=== PATIENT | female | born 1970 | race Caucasian/White ===

== ENCOUNTER 2018-11-14 11:30 | Inpatient (IN) | payer MEDICARE, OTHER ==
[~2018-11-14] VITALS: Ht 172.7 cm; Wt 144.9 kg
[~2018-11-14 11:30] MED LIST: AEROECLIPSE II1 EACH MC; ALBIPROI INH; ALBU.083IS; ALBU90OI; ALBU90OI INH; ALBU90OI61 INH; ALBUIS IH; ALBUIS INH; ALLO300; ALPR.5 PO; AMOX500 PO; ARIP10; ARIP10 PO; ARIP15; ARIP30; ASPI81CH PO; ASPI81EC; ASPI81EC PO; ATOR10; ATOR20 PO; AZIT250 PO; Antivert25 MG PO; BECL40OI; BECLNI16.8; BENZ.5; BENZ1; BENZ1 PO; BENZ100A PO; BUSP15 PO; Bactroban22 GM TOP; CALGLU500 PO; CARB100ER; CARB200; CARB200 PO; CEFP200 PO; CEPH500 PO; CETI10; CITA20; CLON.5; CLON1; CLON2; CLON2 PO; CODACE30 PO; COLC.6 PO; CRESTOR 40MG PO; CRUTCH4 USE; CYCL10 PO; Cleocin HCl150 MG PO; DICL75ER PO; DIVA500EC; DIVA500EC PO; DIVA500ER PO; DOC250 PO; DOCU100; DULO30; Divalproex Sod500 MG PO; ELET40TA PO; ERGO50000 PO; ESTR1; ESTR2; ESTR2 PO; FERR325; FEXPSEER PO; FIBE4P PO; FISH OIL PO; FISH1000 PO; FURO20 PO; Flonase 0.05% N16 GM; GABA100 PO; GABA300 PO; GABA400 PO; GLIP2.5ER; GLYB2.5 PO; GLYB5 PO; GUAI600ER PO; GUAI600T33 PO; GUAPHELA PO; HALO5; HALO5 PO; HYDACE10B PO; HYDACE25S PR; HYDACE5 PO; HYOS.125 SL; IBUP600 PO; IBUP800 PO; INDO25 PO; INDO50 PO; INDOCIN; INSULANPEN SC; INSULIN SYRING1 EAC1 MC; IPRAIS NEB; Imitrex50 MG PO; LACT10SY PO; LAMO100 PO; LAMO25 PO; LATUDA PO; LAVAP17G PO; LEVFLO500 PO; LEVOXYL; LEVSOD25; LEVSOD25 PO; LEVSOD50; LEVSOD50 PO; LEVSOD75; LISI20 PO; LISI5 PO; LITH300C PO; LITH300CA; LITH450ER; LITHIUM; LORA1; LORA1 PO; LORA10ER PO; LOVA20; Lamotrigine100 MG PO; Lisinopril2.5 MG PO; Lithium Carbon450 MG PO; MAGCIT300 PO; MELO7.5; METF500 PO; METF500C; METF500C PO; METFORMIN PO; METH10 PO; MONT10T; MONT10T PO; MONT4; MUPI2TC TOP; Micro-K10 MEQ PO; Mucinex600 MG PO; NAPR250 PO; NAPR375 PO; NAPR500 PO; NAPR550 PO; NYSTATIN1 EAC1 MC; OMEG1CAP30 PO; OMEP20ER; OMEP20ER PO; OXYACE5T PO; OXYC5 PO; Omeprazole20 M1 PO; PANT40; PANT40 PO; PIOG15; PIOG15 PO; POTCHL20ER PO; PRAV20 PO; PRED10 PO; PRED20 PO; PROACE100; PROACE100 PO; PROC10 PO; PROM25 PO; PSEU120ER PO; Prednisone20 MG PO; Prilosec Otc20 MG PO; Pseudoephedrine30 MG PO; QUET100 PO; QUET200; QUET25; QUET300; RANI150 PO; RANI150EL PO; RISP2; ROSU10TA; ROSU10TA PO; ROSU5; ROSUVASTATIN CA40 MG PO; RXCEPH500 PO; RXHYDACE PO; RXLORA1 PO; RXNAPNA550 PO; RXOXYACE PO; RXPROACE PO; Robaxin500 MG PO; SACC250C PO; SERT100; SERT50; SITA100T2 PO; SUMA25; SUMA25 PO; SUPRAX400 MG PO; Seroquel400 MG PO; Sudogest30 MG PO; TOPAMAX 50 MG; TOPI100; TOPI25; TRAACE PO; TRAZ100; TRAZ100 PO; TRAZ50; Triamcinolone A15 GM TOP; VENL25; VENL37.5; Ventolin Soln3 ML INH; Ventolin/Prove6.7 GM INH; Vibramycin100 MG PO; ZIPR20; ZIPR40; ZOLP5 PO; Zithromax250 MG PO; [UNRECOGNIZED DRUG - OTHER]; [UNRECOGNIZED DRUG - OTHER]; [UNRECOGNIZED DRUG - OTHER]; [UNRECOGNIZED DRUG - OTHER]; [UNRECOGNIZED DRUG - OTHER]; [UNRECOGNIZED DRUG - OTHER] PO
[2018-11-14 11:59] LABS: Source, Urine Catheter
[2018-11-14 12:10] LABS: Bilirubin, Urine Neg (Neg); Blood, Urine Neg (Neg); Glucose Qualitative, Urine Neg (Neg); Ketones, Urine Neg (Neg); Leukocyte Esterase, Urine Neg (Neg); Nitrite, Urine Neg (Neg); Protein, Urine Neg (Neg); Specific Gravity, Urine 1.015 (1.003-1.022); Urobilinogen, Urine NORM (Normal)
[2018-11-14 12:14] LABS: BASOPHILS ABSOLUTE AUTO 0.01 K/mm3 (0.00-0.23); BASOPHILS PERCENT AUTO 0 % (0-2); EOSINOPHILS ABSOLUTE AUTO 0.13 K/mm3 (0.00-0.68); EOSINOPHILS PERCENT AUTO 2 % (0-6); Hematocrit 42.9 % (33.0-51.0); Hemoglobin 13.7 g/dL (11.5-16.0); IMMATURE GRAN ABSOLUTE AUTO 0.03 K/mm3 (0.00-0.10); IMMATURE GRAN PERCENT AUTO 1 % (0-1); LYMPHOCYTES ABSOLUTE AUTO 3.06 K/mm3 (0.84-5.20); LYMPHOCYTES PERCENT AUTO 54 % (21-46); MONOCYTES ABSOLUTE AUTO 0.31 K/mm3 (0.16-1.47); MONOCYTES PERCENT AUTO 6 % (4-13); Mean Corpuscular HGB Conc 31.9 g/dL (31.5-36.5); Mean Corpuscular Volume 94 fL (80-100); Mean Platelet Volume 10.3 fL (9.1-12.4); NEUTROPHILS ABSOLUTE AUTO 2.08 K/mm3 (1.96-9.15); NEUTROPHILS PERCENT AUTO 37 % (41-73); Platelet Count 117 K/mm3 (150-400); RDW Coefficient Variation 14.6 % (11.7-14.2); RDW Standard Deviation 50.2 fL (35.1-46.3); Red Blood Cell Count 4.57 M/mm3 (3.80-5.20); White Blood Cell Count 5.62 K/mm3 (4.00-11.30)
[2018-11-14 12:18] LABS: Appearance, Urine Clear (Clear); Color, Urine Yellow (P-Yellow)
[2018-11-14 12:34] LABS: Alanine Aminotransfer (ALT/SGP 37 U/L (12-78); Albumin, Blood 2.9 g/dL (3.4-5.0); Albumin/Globulin Ratio 0.9 (0.8-1.8); Alk Phos 104 U/L (50-136); Anion Gap 9 mmol/L (6-16); Aspartate Aminotrans (AST/SGOT 34 U/L (12-37); Bilirubin, Total 0.2 mg/dL (0.1-1.0); Blood Urea Nitrogen 11 mg/dL (8-24); Bun/Creatinine Ratio 15.7 (12.0-20.0); CO2, Blood 25 mmol/L (21-32); Calcium, Blood 8.7 mg/dL (8.5-10.1); Chloride, Blood 105 mmol/L (98-108); Ethanol (Alcohol), Blood, Med <3 mg/dL; Globulin, Blood 3.3 g/dL (2.2-4.0); Glomerular Filtration Rate >60 (60-); Glucose, Blood 211 mg/dL (70-99); Sodium, Blood 139 mmol/L (136-145); Total Protein, Blood 6.2 g/dL (6.4-8.2)
[2018-11-14 12:36] LABS: International Normalized Ratio 0.97; Prothrombin Time Results 10.3 Sec (9.7-11.5)
[2018-11-14 12:37] LABS: U Amphetamine Screen Not Detected; U Barbituate Screen Not Detected; U Benzodiazapine Screen DETECTED; U Buprenorphine Screen Not Detected; U Cannabinoids Screen Not Detected; U Cocaine Screen Not Detected; U Methadone Screen Not Detected; U Methamphetamine Screen Not Detected; U Opiates Screen Not Detected; U Oxycodone Screen Not Detected; U Phencyclidine Screen Not Detected; U Propoxyphene Screen Not Detected
[2018-11-14 12:40] LABS: Free Thyroxine 0.94 ng/dL (0.70-1.60)
[2018-11-14 12:42] LABS: Thyroid Stimulating Hormone 3.56 uIU/mL (0.360-4.800)
[2018-11-14] MEDS ORDERED: ARIPIPRAZOLE10 M1 PO (14:22)
[2018-11-14] MEDS ORDERED: FUROSEMIDE20 MG PO (14:23)
[2018-11-14] MEDS ORDERED: DIVA500EC PO (14:23)
[2018-11-14] MEDS ORDERED: K-Dur10 MEQ PO (14:24)
[2018-11-14] MEDS ORDERED: QUETIAPINE FUM400 MG PO (14:25)
[2018-11-14] MEDS ORDERED: Imitrex100 MG PO (14:25)
[2018-11-14] MEDS ORDERED: Lisinopril2.5 MG PO (14:25)
[2018-11-14] MEDS ORDERED: ESCITALOPRAM OX10 MG PO (14:26)
[2018-11-14] MEDS ORDERED: METFORMIN HCL500 MG PO (14:26)
[2018-11-14] MEDS ORDERED: MONTELUKAST SOD10 MG PO (14:26)
[2018-11-14] MEDS ORDERED: SITA100T2 PO (14:28)
[2018-11-14 15:37] LABS: Acetaminophen, Random <2.0 ug/mL (10.0-30.0); Salicylate 5.2 mg/dL (2.8-20.0)
[2018-11-14 15:39] LABS: Valproic Acid 96.5 ug/mL (50.0-100.0)
[2018-11-14 15:49] LABS: PCO2 Arterial 67.8 mmHg (35-45); PO2 Arterial 107 mmHg (80-100)
[2018-11-14 17:26] LABS: PCO2 Arterial 56.2 mmHg (35-45); PO2 Arterial 189 mmHg (80-100); pH Blood Arterial 7.27 (7.35-7.45)
--- NOTE | 2018-11-14 17:54 | NUR ---
ADMISSION / SHIFT SUMMARY: REPORT RECIEVED FROM RONA England RN IN ED. PT ARRIVED TO UNIT AT APPROX 1615. ON ARRIVAL, PT IS SOMNOLENT. NOT WAKING TO VERBAL STIMULUS & ONLY GRIMACING TO PAINFUL STIMULUS. SHE IS SLIGHTLY HYPOTHERMIC W/ TEMP [place] READING 95-96 DEGREES FARENHEIGHT. BIPAP IS IN PLACE W/ SETTINGS: 15/10, RR 14 & FIO2 45%. PT TOLERATING THIS WELL W/ O2 SATS > 92%. MONITOR SHOWS SR W/ HR 70-80s. HYPOTENSION NOTED, 1L NS BOLUS INITIATED PER DR OBRIEN W/ SOME IMPROVEMENT NOTED. ABG IMPROVING SINCE BIPAP THERAPY INITIATED. PT ALSO MORE ALERT, OPENING EYES BRIEFLY TO PAINFUL STIMULUS. TEMP [place] PATENT/ DRAINING. ABRASION NOTED TO L FOREARM/ ELBOW. WILL CONTINUE TO MONITOR & REPORT OFF TO ONCOMING RN.
--- NOTE | 2018-11-14 19:35 | NUR ---
PT ON BIPAP. LETHARGIC. WILL OPEN HER EYE'S WHEN SHE HEARS HER NAME BUT CLOSES THEM QUICKLY. WILL HOG GRADER HANDS ON COMMAND WITH STRONG HOG GRADER BUT ARMS ARE WEAK WHEN LIFTING THEM. WILL WIGGLE TOES ON COMMAND. ONLY MOANS FOR VERBAL. SEE ASSESSMENT.
--- NOTE | 2018-11-15 00:43 | NUR ---
PT AWAKE. WANTING BREAK FROM THE BIPAP. A/O TO PERSON, PLACE, AND TIME. ASKING APPROPRIATE QUESTIONS AND ABLE TO USE THE CALL LIGHT. PT IS STILL DROWSY AND FALLS ASLEEP QUICKLY IF LEFT UNDISTURBED.
[2018-11-15] MEDS ORDERED: QUET100 PO (02:50)
[2018-11-15] MEDS ORDERED: ROSU10TA PO (02:50)
[2018-11-15 03:30] LABS: BASOPHILS ABSOLUTE AUTO 0.01 K/mm3 (0.00-0.23); BASOPHILS PERCENT AUTO 0 % (0-2); EOSINOPHILS ABSOLUTE AUTO 0.09 K/mm3 (0.00-0.68); EOSINOPHILS PERCENT AUTO 2 % (0-6); Hematocrit 41.8 % (33.0-51.0); Hemoglobin 13.3 g/dL (11.5-16.0); IMMATURE GRAN ABSOLUTE AUTO 0.02 K/mm3 (0.00-0.10); IMMATURE GRAN PERCENT AUTO 0 % (0-1); LYMPHOCYTES ABSOLUTE AUTO 2.45 K/mm3 (0.84-5.20); LYMPHOCYTES PERCENT AUTO 46 % (21-46); MONOCYTES ABSOLUTE AUTO 0.27 K/mm3 (0.16-1.47); MONOCYTES PERCENT AUTO 5 % (4-13); Mean Corpuscular HGB Conc 31.8 g/dL (31.5-36.5); Mean Corpuscular Volume 94 fL (80-100); Mean Platelet Volume 10.3 fL (9.1-12.4); NEUTROPHILS ABSOLUTE AUTO 2.45 K/mm3 (1.96-9.15); NEUTROPHILS PERCENT AUTO 46 % (41-73); Platelet Count 107 K/mm3 (150-400); RDW Coefficient Variation 14.6 % (11.7-14.2); RDW Standard Deviation 51.4 fL (35.1-46.3); Red Blood Cell Count 4.43 M/mm3 (3.80-5.20); White Blood Cell Count 5.29 K/mm3 (4.00-11.30)
[2018-11-15 03:47] LABS: Alanine Aminotransfer (ALT/SGP 34 U/L (12-78); Albumin, Blood 2.8 g/dL (3.4-5.0); Albumin/Globulin Ratio 0.9 (0.8-1.8); Alk Phos 82 U/L (50-136); Anion Gap 6 mmol/L (6-16); Aspartate Aminotrans (AST/SGOT 33 U/L (12-37); Bilirubin, Total 0.2 mg/dL (0.1-1.0); Blood Urea Nitrogen 10 mg/dL (8-24); Bun/Creatinine Ratio 14.5 (12.0-20.0); CO2, Blood 26 mmol/L (21-32); Calcium, Blood 8.1 mg/dL (8.5-10.1); Chloride, Blood 108 mmol/L (98-108); Creatinine, Blood 0.69 mg/dL (0.40-1.00); Globulin, Blood 3.2 g/dL (2.2-4.0); Glomerular Filtration Rate >60 (60-); Glucose, Blood 150 mg/dL (70-99); Potassium, Blood 4.4 mmol/L (3.5-5.5); Sodium, Blood 140 mmol/L (136-145)
[2018-11-15 04:43] LABS: PCO2 Arterial 45.1 mmHg (35-45); PO2 Arterial 75.7 mmHg (80-100); pH Blood Arterial 7.39 (7.35-7.45)
--- NOTE | 2018-11-15 06:23 | NUR ---
SUMMARY PT WORE BIPAP UNTIL A LITTLE AFTER MIDNIGHT WHEN SHE BECAME MORE RESPONSIVE. SHE IS NOW A/O TO PERSON, PLACE, AND TIME. ABLE TO GET TO BSC WITH MINIMAL ASSIST. PT STATES SHE DOES'T REALLY REMEMBER WHAT HAPPENED YESTERDAY. SHE CAN REMEMBER DROPPING A FAMILY MEMBER OFF AT [facility] BUT NOT MUCH ELSE. NO SIGN OF DISTRESS. USING CALL LIGHT APPROPRIATELY.
--- NOTE | 2018-11-15 07:15 | NUR ---
BEGINNING OF SHIFT Assumed care at 0700. Bedside report received from Kelly BERRY. Pt alert and oriented. Requests Tylenol for elbow pain. Also requests "something to eat". Pt on room air. SR per monitor. Pt states desire to go home. When this RN asks pt why she thinks her mental status was altered, she states "I fell the other night. They said I didn't hit my head but I must have". This RN educates pt that she had a head CT that did not show any abnormality. This RN inquires if pt thinks she overdosed on her medications and she states "No". Pt inquires about her blood glucose on arrival. Results discussed. Pt states she does not think her blood glucose caused her somnolence.
--- NOTE | 2018-11-15 07:50 | NUR ---
CALL PLACED TO DR LANCASTER Notified provider that pt is alert and oriented. Asked if pt is okay to eat breakfast. Provider ordered ADA diet.
--- NOTE | 2018-11-15 08:00 | NUR ---
PROVIDER IN UNIT Pt states she is having elbow pain. Asking for Tylenol. New orders given.
--- NOTE | 2018-11-15 08:44 | NUR ---
AM MEDS / POTENTIAL DISCHARGE Discussed with Dr Sousa. Provider orders lisinopril, furosemide, and potassium. Provider states that pt will likely go home this afternoon, if Dr Gomez states it is okay.
[2018-11-15] MEDS ORDERED: LAMO100 PO (10:44)
[2018-11-15] MEDS ORDERED: ALPR.5 PO (10:57)
--- NOTE | 2018-11-15 11:00 | NUR ---
DR OBRIEN AT BEDSIDE States she would like Dr Wilkerson to see pt to review medications. Otherwise okay for discharge. Pt states she takes alprazolam as needed for panic attacks. She states she does not often need this medication, however, she took it on the evening of 11/13 due to an anxiety attack. This was discussed with Dr Obrien. Pt states verbalizes understanding that this may have caused her hospitalization and she should discontinue this medication.
--- NOTE | 2018-11-15 14:37 | NUR ---
UPDATE Dr Wilkerson in to see pt. Discussed alprazolam. Provider states pt okay to discharge. No changes made to pt's home medication regimen. Update given to Dr Sousa. Plan to discharge patient. Discharge discussed with pt. Pt states she is arranging ride home.
--- NOTE | 2018-11-15 16:46 | NUR ---
DISCHARGE Pt discharged from unit at 1545. Discharge instructions provided to patient. Pt instructed to stop taking alprazolam. Pt verbalized understanding that continuing alprazolam may result in hospitalization or . Pt escorted outside by this RN, departed with family member. IV access discontinued.
== END 2018-11-15 15:45 | disposition home or self-care (01) | DRG 189 ==
LOC: ER 11:30 → ICUW 15:55
PROVIDERS: Emergency Medicine; Internal Medicine Critical Care Medicine; ADMIT Family Medicine
PROC: 5A09357 Assistance with Respiratory Ventilation, Less than 24 Consecutive Hours, Continuous Positive Airway Pressure (ICD-10-PCS; principal; 2018-11-14)
DX: J96.02 Acute respiratory failure with hypercapnia (principal); G92 Toxic encephalopathy; G47.33 Obstructive sleep apnea (adult) (pediatric); F25.0 Schizoaffective disorder, bipolar type; T43.225A Adverse effect of selective serotonin reuptake inhibitors, initial encounter; T43.595A Adverse effect of other antipsychotics and neuroleptics, initial encounter; T42.4X5A Adverse effect of benzodiazepines, initial encounter; E11.9 Type 2 diabetes mellitus without complications; E66.01 Morbid (severe) obesity due to excess calories; G43.909 Migraine, unspecified, not intractable, without status migrainosus; G44.89 Other headache syndrome; F17.210 Nicotine dependence, cigarettes, uncomplicated; Z79.4 Long term (current) use of insulin; Z79.84 Long term (current) use of oral hypoglycemic drugs; Z79.899 Other long term (current) drug therapy; Z88.1 Allergy status to other antibiotic agents; Z88.0 Allergy status to penicillin; Z88.2 Allergy status to sulfonamides; Z88.8 Allergy status to other drugs, medicaments and biological substances
CPT/HCPCS: 36415; 36600; 51702; 70450; 71045; 80053; 80164; 81003; 82803; 82947; 84439; 84443; 85025; 85610; 93005; 93010; 94660; 96361-59; 96374-59; 99285-25; A9270; C9113; G0480; J1650; J2310; J7030

== ENCOUNTER 2018-12-25 20:39 | Emergency (ER) | payer MEDICARE, OTHER ==
[~2018-12-25] VITALS: Ht 172.7 cm; Wt 141.1 kg
[~2018-12-25 20:39] MED LIST changes: +ARIPIPRAZOLE10 M1 PO; +ESCITALOPRAM OX10 MG PO; +FUROSEMIDE20 MG PO; +Imitrex100 MG PO; +K-Dur10 MEQ PO; +METFORMIN HCL500 MG PO; +MONTELUKAST SOD10 MG PO; +QUETIAPINE FUM400 MG PO
[2018-12-25] MEDS ORDERED: KETO10 PO (22:12)
== END 2018-12-25 22:38 | disposition home or self-care (01) ==
LOC: ER 20:39
DX: S93.401A Sprain of unspecified ligament of right ankle, initial encounter (principal); S20.222A Contusion of left back wall of thorax, initial encounter; M62.830 Muscle spasm of back; J45.909 Unspecified asthma, uncomplicated; E11.9 Type 2 diabetes mellitus without complications; E03.9 Hypothyroidism, unspecified; F31.9 Bipolar disorder, unspecified; F25.9 Schizoaffective disorder, unspecified; F17.200 Nicotine dependence, unspecified, uncomplicated; Z88.8 Allergy status to other drugs, medicaments and biological substances; Z88.2 Allergy status to sulfonamides; Z88.1 Allergy status to other antibiotic agents; Z88.0 Allergy status to penicillin; Z79.899 Other long term (current) drug therapy; Z79.4 Long term (current) use of insulin; W01.10XA Fall on same level from slipping, tripping and stumbling with subsequent striking against unspecified object, initial encounter
CPT/HCPCS: 73600; 96374; 99283-25; J1885

== ENCOUNTER 2019-02-16 14:53 | Emergency (ER) | payer MEDICARE, OTHER ==
[~2019-02-16] VITALS: Ht 172.7 cm; Wt 140.2 kg
[~2019-02-16 14:53] MED LIST changes: +KETO10 PO
[2019-02-16 15:13] LABS: Source, Urine Clean Catch
[2019-02-16 15:21] LABS: Bilirubin, Urine Neg (Neg); Blood, Urine Neg (Neg); Glucose Qualitative, Urine 4+ (Neg); Ketones, Urine 1+ (Neg); Leukocyte Esterase, Urine 1+ (Neg); Nitrite, Urine Neg (Neg); Protein, Urine Neg (Neg); Specific Gravity, Urine 1.005 (1.003-1.022); Urobilinogen, Urine 2+ (Normal)
[2019-02-16 15:43] LABS: BASOPHILS ABSOLUTE AUTO 0.01 K/mm3 (0.00-0.23); BASOPHILS PERCENT AUTO 0 % (0-2); EOSINOPHILS ABSOLUTE AUTO 0.08 K/mm3 (0.00-0.68); EOSINOPHILS PERCENT AUTO 1 % (0-6); Hematocrit 46.1 % (33.0-51.0); Hemoglobin 15.3 g/dL (11.5-16.0); IMMATURE GRAN ABSOLUTE AUTO 0.03 K/mm3 (0.00-0.10); IMMATURE GRAN PERCENT AUTO 1 % (0-1); LYMPHOCYTES ABSOLUTE AUTO 2.44 K/mm3 (0.84-5.20); LYMPHOCYTES PERCENT AUTO 39 % (21-46); MONOCYTES ABSOLUTE AUTO 0.33 K/mm3 (0.16-1.47); MONOCYTES PERCENT AUTO 5 % (4-13); Mean Corpuscular HGB 29.8 pg (26.0-34.0); Mean Corpuscular HGB Conc 33.2 g/dL (31.5-36.5); Mean Corpuscular Volume 90 fL (80-100); Mean Platelet Volume 10.4 fL (9.1-12.4); NEUTROPHILS ABSOLUTE AUTO 3.36 K/mm3 (1.96-9.15); NEUTROPHILS PERCENT AUTO 54 % (41-73); Platelet Count 119 K/mm3 (150-400); RDW Coefficient Variation 14.5 % (11.7-14.2); RDW Standard Deviation 47.6 fL (35.1-46.3); Red Blood Cell Count 5.14 M/mm3 (3.80-5.20); White Blood Cell Count 6.25 K/mm3 (4.00-11.30)
[2019-02-16 15:53] LABS: Appearance, Urine Clear (Clear); Color, Urine Yellow (P-Yellow)
[2019-02-16 15:58] LABS: Alanine Aminotransfer (ALT/SGP 32 U/L (12-78); Albumin, Blood 3.4 g/dL (3.4-5.0); Albumin/Globulin Ratio 0.9 (0.8-1.8); Alk Phos 108 U/L (50-136); Anion Gap 8 mmol/L (6-16); Aspartate Aminotrans (AST/SGOT 21 U/L (12-37); Bilirubin, Total 0.4 mg/dL (0.1-1.0); Blood Urea Nitrogen 14 mg/dL (8-24); Bun/Creatinine Ratio 19.9 (12.0-20.0); CO2, Blood 27 mmol/L (21-32); Calcium, Blood 9.1 mg/dL (8.5-10.1); Chloride, Blood 104 mmol/L (98-108); Creatinine, Blood 0.71 mg/dL (0.40-1.00); Globulin, Blood 3.7 g/dL (2.2-4.0); Glomerular Filtration Rate >60 (60-); Glucose, Blood 301 mg/dL (70-99); Potassium, Blood 4.4 mmol/L (3.5-5.5); Sodium, Blood 139 mmol/L (136-145); Total Protein, Blood 7.1 g/dL (6.4-8.2)
[2019-02-16 16:02] LABS: Bacteria Mod /hpf; Red Blood Cells, Urine 0-2 /hpf (0-2); Squamous Epithelial Cells Rare /hpf (Few); White Blood Cells, Urine 0-2 /hpf (0-5)
== END 2019-02-16 16:38 | disposition home or self-care (01) ==
LOC: ER 14:53
PROVIDERS: Physician Assistant
DX: E11.65 Type 2 diabetes mellitus with hyperglycemia (principal); J45.909 Unspecified asthma, uncomplicated; E03.9 Hypothyroidism, unspecified; G47.30 Sleep apnea, unspecified; F31.9 Bipolar disorder, unspecified; F20.9 Schizophrenia, unspecified; F17.210 Nicotine dependence, cigarettes, uncomplicated; Z88.0 Allergy status to penicillin; Z88.1 Allergy status to other antibiotic agents; Z88.2 Allergy status to sulfonamides; Z88.8 Allergy status to other drugs, medicaments and biological substances; Z79.899 Other long term (current) drug therapy; Z79.84 Long term (current) use of oral hypoglycemic drugs
CPT/HCPCS: 36415; 80053; 81001; 82010; 82947; 85025; 87086; 99283; J7030

== ENCOUNTER → 2019-02-25 | Outpatient (CLI) | payer MEDICARE, OTHER | END | disposition home or self-care (01) | LOC: LAB SHORT 16:50 → LAB EV 16:50 | DX: R22.9 Localized swelling, mass and lump, unspecified (principal) | CPT/HCPCS: 87070; 87075; 87205 ==

== ENCOUNTER → 2019-07-01 | Outpatient (CLI) | payer MEDICARE, OTHER | END | disposition home or self-care (01) | LOC: EDSTATUS 06:35 → LAB SHORT 12:00 → LAB EV 12:00 | DX: N61.1 Abscess of the breast and nipple (principal) | CPT/HCPCS: 87070; 87205 ==

== ENCOUNTER 2020-01-15 09:45 | Emergency (ER) | payer MEDICARE, OTHER ==
[~2020-01-15] VITALS: Ht 172.7 cm; Wt 145.2 kg
[~2020-01-15 09:45] MED LIST changes: +OLAN2.5 PO
[2020-01-15] MEDS ORDERED: GABA400 PO (10:41)
== END 2020-01-15 13:26 | disposition home or self-care (01) ==
LOC: ER 09:45
DX: F07.81 Postconcussional syndrome (principal); E11.9 Type 2 diabetes mellitus without complications; E03.9 Hypothyroidism, unspecified; F31.9 Bipolar disorder, unspecified; F20.9 Schizophrenia, unspecified; J45.909 Unspecified asthma, uncomplicated; F17.210 Nicotine dependence, cigarettes, uncomplicated; Z79.4 Long term (current) use of insulin; Z79.899 Other long term (current) drug therapy
CPT/HCPCS: 70450; 99283-25

== ENCOUNTER 2020-02-28 18:53 | Emergency (ER) | payer MEDICARE, OTHER ==
[~2020-02-28] VITALS: Ht 172.7 cm; Wt 117.9 kg
== END 2020-02-28 20:16 | disposition home or self-care (01) ==
LOC: ER 18:53
DX: S90.32XA Contusion of left foot, initial encounter (principal); M72.2 Plantar fascial fibromatosis; Z79.899 Other long term (current) drug therapy; Z79.4 Long term (current) use of insulin; W20.8XXA Other cause of strike by thrown, projected or falling object, initial encounter; Y92.512 Supermarket, store or market as the place of occurrence of the external cause
CPT/HCPCS: 73630; 99283-25; A9270

== ENCOUNTER → 2020-04-26 | Outpatient (CLI) | payer MEDICARE, OTHER ==
[~2020-04-26] MED LIST changes: +BASAGLAR K100 UNIT/1 SC; +COLCRYS0.6 M1 PO; +Flovent 220 Ora12 GM INH; +HYDPAM50 PO; +Voltaren100 GM TOP
[2020-04-26 16:10] LABS: U Amphetamine Screen Not Detected; U Barbituate Screen Not Detected; U Benzodiazapine Screen Not Detected; U Buprenorphine Screen Not Detected; U Cannabinoids Screen DETECTED; U Cocaine Screen Not Detected; U Methadone Screen Not Detected; U Methamphetamine Screen Not Detected; U Opiates Screen Not Detected; U Oxycodone Screen Not Detected; U Phencyclidine Screen Not Detected; U Propoxyphene Screen Not Detected
[2020-05-03 13:09] LABS: AMITRIPTYLINE Negative (Cutoff=100); CLOMIPRAMINE Negative (Cutoff=100); CYCLOBENZAPRINE Positive (.); CYCLOBENZAPRINE CONF 253 ng/mL (Cutoff=100); DESIPRAMINE Negative (Cutoff=100); DOXEPIN Negative (Cutoff=100); IMIPRAMINE Negative (Cutoff=100); NORDOXEPIN Negative (Cutoff=100); NORTRIPTYLINE Negative (Cutoff=100); PROTRIPTYLINE Negative (Cutoff=100); TRICYCLIC ANTIDEP Positive ng/mL (Cutoff=100); TRIMIPRAMINE Negative (Cutoff=100)
== END | disposition home or self-care (01) ==
LOC: LAB SHORT 14:49 → LAB EV 14:49
PROVIDERS: Nurse Practitioner Psychiatric/Mental Health
DX: F25.9 Schizoaffective disorder, unspecified (principal); Z79.899 Other long term (current) drug therapy
CPT/HCPCS: G0480; G0481

== ENCOUNTER 2020-05-28 00:39 | Emergency (ER) | payer MEDICARE, OTHER ==
[~2020-05-28] VITALS: Ht 172.7 cm; Wt 156.0 kg
[~2020-05-28 00:39] MED LIST changes: -BASAGLAR K100 UNIT/1 SC; -COLCRYS0.6 M1 PO; -Flovent 220 Ora12 GM INH; -HYDPAM50 PO; -Voltaren100 GM TOP
== END 2020-05-28 03:02 | disposition home or self-care (01) ==
LOC: ER 00:39
DX: R06.02 Shortness of breath (principal); E11.9 Type 2 diabetes mellitus without complications; J45.909 Unspecified asthma, uncomplicated; F17.210 Nicotine dependence, cigarettes, uncomplicated; Z88.2 Allergy status to sulfonamides; Z88.0 Allergy status to penicillin; Z88.1 Allergy status to other antibiotic agents; Z79.84 Long term (current) use of oral hypoglycemic drugs
CPT/HCPCS: 99282; J1100

== ENCOUNTER 2020-06-30 17:50 | Emergency (ER) | payer MEDICARE, OTHER ==
[~2020-06-30] VITALS: Ht 172.7 cm; Wt 145.2 kg
[2020-06-30 18:16] LABS: BASOPHILS ABSOLUTE AUTO 0.01 K/mm3 (0.00-0.23); BASOPHILS PERCENT AUTO 0 % (0-2); EOSINOPHILS ABSOLUTE AUTO 0.14 K/mm3 (0.00-0.68); EOSINOPHILS PERCENT AUTO 3 % (0-6); Hematocrit 43.1 % (33.0-51.0); Hemoglobin 14.6 g/dL (11.5-16.0); IMMATURE GRAN ABSOLUTE AUTO 0.03 K/mm3 (0.00-0.10); IMMATURE GRAN PERCENT AUTO 1 % (0-1); LYMPHOCYTES ABSOLUTE AUTO 2.01 K/mm3 (0.84-5.20); LYMPHOCYTES PERCENT AUTO 41 % (21-46); MONOCYTES ABSOLUTE AUTO 0.29 K/mm3 (0.16-1.47); MONOCYTES PERCENT AUTO 6 % (4-13); Mean Corpuscular HGB Conc 33.9 g/dL (31.5-36.5); Mean Corpuscular Volume 89 fL (80-100); Mean Platelet Volume 10.1 fL (9.1-12.4); NEUTROPHILS ABSOLUTE AUTO 2.44 K/mm3 (1.96-9.15); NEUTROPHILS PERCENT AUTO 50 % (41-73); Platelet Count 115 K/mm3 (150-400); RDW Coefficient Variation 13.1 % (11.7-14.2); RDW Standard Deviation 42.9 fL (35.1-46.3); Red Blood Cell Count 4.86 M/mm3 (3.80-5.20); White Blood Cell Count 4.92 K/mm3 (4.00-11.30)
[2020-06-30] MEDS ORDERED: BASAGLAR K100 UNIT/1 SC (18:21)
[2020-06-30] MEDS ORDERED: CYCL10 PO (18:25)
[2020-06-30] MEDS ORDERED: COLCRYS0.6 M1 PO (18:25)
[2020-06-30] MEDS ORDERED: Voltaren100 GM TOP (18:27)
[2020-06-30] MEDS ORDERED: DIVA500ER PO (18:27)
[2020-06-30] MEDS ORDERED: Flovent 220 Ora12 GM INH (18:30)
[2020-06-30] MEDS ORDERED: HYDPAM50 PO (18:32)
[2020-06-30] MEDS ORDERED: SITA100T2 PO (18:33)
[2020-06-30] MEDS ORDERED: OMEP20ER PO (18:34)
[2020-06-30 18:53] LABS: Alanine Aminotransfer (ALT/SGP 42 U/L (12-78); Albumin, Blood 3.3 g/dL (3.4-5.0); Albumin/Globulin Ratio 0.9 (0.8-1.8); Alk Phos 103 U/L (50-136); Anion Gap 3 mmol/L (6-16); Aspartate Aminotrans (AST/SGOT 40 U/L (12-37); Bilirubin, Total 0.4 mg/dL (0.1-1.0); Blood Urea Nitrogen 11 mg/dL (8-24); Bun/Creatinine Ratio 13.4 (12.0-20.0); CO2, Blood 29 mmol/L (21-32); Calcium, Blood 9.4 mg/dL (8.5-10.1); Chloride, Blood 102 mmol/L (98-108); Creatinine, Blood 0.82 mg/dL (0.40-1.00); Globulin, Blood 3.6 g/dL (2.2-4.0); Glomerular Filtration Rate >60 (60-); Glucose, Blood 261 mg/dL (70-99); Potassium, Blood 4.4 mmol/L (3.5-5.5); Sodium, Blood 134 mmol/L (136-145); Total Protein, Blood 6.9 g/dL (6.4-8.2)
[2020-06-30 20:29] LABS: Source, Urine Clean Catch
[2020-06-30 20:32] LABS: Bilirubin, Urine Neg (Neg); Blood, Urine Neg (Neg); Glucose Qualitative, Urine 4+ (Neg); Ketones, Urine 1+ (Neg); Leukocyte Esterase, Urine 1+ (Neg); Nitrite, Urine Neg (Neg); Protein, Urine Neg (Neg); Urobilinogen, Urine NORM (Normal)
[2020-06-30 20:37] LABS: Appearance, Urine Clear (Clear); Color, Urine Yellow (P-Yellow)
[2020-06-30 20:38] LABS: Bacteria Rare /hpf; Red Blood Cells, Urine Not Seen /hpf (0-2); Squamous Epithelial Cells Few /hpf (Few); Yeast/Fungi Urine Few /hpf
[2020-06-30 20:48] LABS: U Amphetamine Screen Not Detected; U Barbituate Screen Not Detected; U Benzodiazapine Screen Not Detected; U Buprenorphine Screen Not Detected; U Cannabinoids Screen DETECTED; U Cocaine Screen Not Detected; U Methadone Screen Not Detected; U Methamphetamine Screen Not Detected; U Opiates Screen Not Detected; U Oxycodone Screen Not Detected; U Phencyclidine Screen Not Detected; U Propoxyphene Screen Not Detected
== END 2020-06-30 21:22 | disposition home or self-care (01) ==
LOC: ER 17:50
PROVIDERS: Emergency Medicine
DX: G43.909 Migraine, unspecified, not intractable, without status migrainosus (principal); E11.9 Type 2 diabetes mellitus without complications; E03.9 Hypothyroidism, unspecified; F17.210 Nicotine dependence, cigarettes, uncomplicated; Z79.4 Long term (current) use of insulin; Z79.899 Other long term (current) drug therapy; Z88.2 Allergy status to sulfonamides; Z88.0 Allergy status to penicillin; Z88.1 Allergy status to other antibiotic agents; Z88.8 Allergy status to other drugs, medicaments and biological substances; R20.2 Paresthesia of skin
CPT/HCPCS: 36415; 70450; 80053; 81001; 82947; 85025; 87086; 93005; 93010; 96365; 96375; 99283; 99284-25; J1200; J1885; J2765; J3475; J7030

== ENCOUNTER → 2020-07-27 | Outpatient (CLI) | payer MEDICARE, OTHER ==
[~2020-07-27] MED LIST changes: +BASAGLAR K100 UNIT/1 SC; +COLCRYS0.6 M1 PO; +Flovent 220 Ora12 GM INH; +HYDPAM50 PO; +Voltaren100 GM TOP
== END | disposition home or self-care (01) ==
LOC: LAB SHORT 15:39 → LAB 15:39
DX: L73.9 Follicular disorder, unspecified (principal)
CPT/HCPCS: 87070; 87205

== ENCOUNTER 2020-08-04 19:39 | Emergency (ER) | payer MEDICARE, OTHER ==
[~2020-08-04] VITALS: Ht 172.7 cm; Wt 135.2 kg
== END 2020-08-05 00:19 | disposition home or self-care (01) ==
LOC: ER 19:39
DX: G43.909 Migraine, unspecified, not intractable, without status migrainosus (principal); E11.9 Type 2 diabetes mellitus without complications; E03.9 Hypothyroidism, unspecified; F17.210 Nicotine dependence, cigarettes, uncomplicated; Z79.4 Long term (current) use of insulin; Z88.2 Allergy status to sulfonamides; Z88.0 Allergy status to penicillin; Z88.1 Allergy status to other antibiotic agents; Z88.8 Allergy status to other drugs, medicaments and biological substances; Z79.899 Other long term (current) drug therapy
CPT/HCPCS: 36415; 70450; 96374; 96375; 99284-25; J1200; J1790; J1885

== ENCOUNTER → 2020-08-05 | Outpatient (CLI) | payer MEDICARE, OTHER ==
[2020-08-05 16:35] LABS: BASOPHILS ABSOLUTE AUTO 0.02 K/mm3 (0.00-0.23); BASOPHILS PERCENT AUTO 0 % (0-2); EOSINOPHILS ABSOLUTE AUTO 0.14 K/mm3 (0.00-0.68); EOSINOPHILS PERCENT AUTO 2 % (0-6); Hemoglobin 16.3 g/dL (11.5-16.0); IMMATURE GRAN ABSOLUTE AUTO 0.05 K/mm3 (0.00-0.10); IMMATURE GRAN PERCENT AUTO 1 % (0-1); LYMPHOCYTES ABSOLUTE AUTO 2.72 K/mm3 (0.84-5.20); LYMPHOCYTES PERCENT AUTO 32 % (21-46); MONOCYTES ABSOLUTE AUTO 0.52 K/mm3 (0.16-1.47); MONOCYTES PERCENT AUTO 6 % (4-13); Mean Corpuscular HGB 30.2 pg (26.0-34.0); Mean Corpuscular Volume 89 fL (80-100); Mean Platelet Volume 10.1 fL (9.1-12.4); NEUTROPHILS ABSOLUTE AUTO 5.05 K/mm3 (1.96-9.15); NEUTROPHILS PERCENT AUTO 60 % (41-73); Platelet Count 157 K/mm3 (150-400); RDW Coefficient Variation 13.6 % (11.7-14.2); RDW Standard Deviation 43.7 fL (35.1-46.3); Red Blood Cell Count 5.39 M/mm3 (3.80-5.20)
[2020-08-05 17:10] LABS: Alanine Aminotransfer (ALT/SGP 58 U/L (12-78); Albumin, Blood 3.7 g/dL (3.4-5.0); Alk Phos 102 U/L (40-126); Anion Gap 9 mmol/L (6-16); Aspartate Aminotrans (AST/SGOT 73 U/L (12-37); Bilirubin, Total 0.6 mg/dL (0.1-1.0); Blood Urea Nitrogen 17 mg/dL (8-24); Bun/Creatinine Ratio 18.1 (12.0-20.0); CO2, Blood 28 mmol/L (21-32); Calcium, Blood 9.8 mg/dL (8.5-10.1); Chloride, Blood 100 mmol/L (98-108); Creatinine, Blood 0.94 mg/dL (0.40-1.00); Globulin, Blood 3.7 g/dL (2.2-4.0); Glomerular Filtration Rate >60 (60-); Glucose, Blood 186 mg/dL (70-99); Potassium, Blood 4.8 mmol/L (3.5-5.5); Sodium, Blood 137 mmol/L (136-145); Total Protein, Blood 7.4 g/dL (6.4-8.2)
== END | disposition home or self-care (01) ==
LOC: LAB SHORT 16:27 → LAB 16:27
PROVIDERS: Physician Assistant
DX: R42 Dizziness and giddiness (principal)
CPT/HCPCS: 36415; 80053; 85025

== ENCOUNTER 2020-09-07 00:41 | Emergency (ER) | payer MEDICARE, OTHER ==
[2020-09-07 07:09] LABS: Anion Gap 5 mmol/L (6-16); Blood Urea Nitrogen 11 mg/dL (8-24); Bun/Creatinine Ratio 14.5 (12.0-20.0); CO2, Blood 30 mmol/L (21-32); Chloride, Blood 103 mmol/L (98-108); Creatinine, Blood 0.76 mg/dL (0.40-1.00); Glomerular Filtration Rate >60 (60-); Glucose, Blood 208 mg/dL (70-99); Potassium, Blood 3.7 mmol/L (3.5-5.5); Sodium, Blood 138 mmol/L (136-145)
[2020-09-07 07:10] LABS: Calcium, Blood 9.1 mg/dL (8.5-10.1)
[2020-09-07 07:17] LABS: BASOPHILS ABSOLUTE AUTO 0.01 K/mm3 (0.00-0.23); BASOPHILS PERCENT AUTO 0 % (0-2); EOSINOPHILS ABSOLUTE AUTO 0.13 K/mm3 (0.00-0.68); EOSINOPHILS PERCENT AUTO 2 % (0-6); IMMATURE GRAN ABSOLUTE AUTO 0.03 K/mm3 (0.00-0.10); IMMATURE GRAN PERCENT AUTO 1 % (0-1); LYMPHOCYTES ABSOLUTE AUTO 2.69 K/mm3 (0.84-5.20); LYMPHOCYTES PERCENT AUTO 43 % (21-46); MONOCYTES ABSOLUTE AUTO 0.45 K/mm3 (0.16-1.47); MONOCYTES PERCENT AUTO 7 % (4-13); Mean Corpuscular HGB 30.5 pg (26.0-34.0); Mean Corpuscular HGB Conc 34.1 g/dL (31.5-36.5); Mean Corpuscular Volume 89 fL (80-100); Mean Platelet Volume 10.6 fL (9.1-12.4); NEUTROPHILS ABSOLUTE AUTO 2.91 K/mm3 (1.96-9.15); NEUTROPHILS PERCENT AUTO 47 % (41-73); Platelet Count 126 K/mm3 (150-400); RDW Coefficient Variation 13.6 % (11.7-14.2); RDW Standard Deviation 44.3 fL (35.1-46.3); Red Blood Cell Count 4.59 M/mm3 (3.80-5.20); White Blood Cell Count 6.22 K/mm3 (4.00-11.30)
== END 2020-09-07 06:00 | disposition home or self-care (01) ==
LOC: ER 00:41
PROVIDERS: Emergency Medicine
DX: R10.31 Right lower quadrant pain (principal); Z88.2 Allergy status to sulfonamides; Z79.4 Long term (current) use of insulin; Z79.899 Other long term (current) drug therapy
CPT/HCPCS: 74176; 80048; 85025; 99284-25

== ENCOUNTER 2020-11-08 01:58 | Observation (INO) | payer MEDICARE, OTHER ==
[~2020-11-08] VITALS: Ht 172.7 cm; Wt 142.0 kg
[2020-11-08 02:57] LABS: BASOPHILS ABSOLUTE AUTO 0.02 K/mm3 (0.00-0.23); BASOPHILS PERCENT AUTO 0 % (0-2); EOSINOPHILS ABSOLUTE AUTO 0.38 K/mm3 (0.00-0.68); EOSINOPHILS PERCENT AUTO 6 % (0-6); Hemoglobin 13.7 g/dL (11.5-16.0); IMMATURE GRAN ABSOLUTE AUTO 0.07 K/mm3 (0.00-0.10); IMMATURE GRAN PERCENT AUTO 1 % (0-1); LYMPHOCYTES ABSOLUTE AUTO 2.76 K/mm3 (0.84-5.20); LYMPHOCYTES PERCENT AUTO 43 % (21-46); MONOCYTES ABSOLUTE AUTO 0.37 K/mm3 (0.16-1.47); MONOCYTES PERCENT AUTO 6 % (4-13); Mean Corpuscular HGB 30.4 pg (26.0-34.0); Mean Corpuscular HGB Conc 34.3 g/dL (31.5-36.5); Mean Corpuscular Volume 89 fL (80-100); Mean Platelet Volume 10.4 fL (9.1-12.4); NEUTROPHILS ABSOLUTE AUTO 2.76 K/mm3 (1.96-9.15); NEUTROPHILS PERCENT AUTO 43 % (41-73); Platelet Count 127 K/mm3 (150-400); RDW Coefficient Variation 12.7 % (11.7-14.2); RDW Standard Deviation 41.4 fL (35.1-46.3); White Blood Cell Count 6.36 K/mm3 (4.00-11.30)
[2020-11-08 03:14] LABS: Alanine Aminotransfer (ALT/SGP 37 U/L (12-78); Albumin, Blood 3.2 g/dL (3.4-5.0); Albumin/Globulin Ratio 0.8 (0.8-1.8); Alk Phos 126 U/L (50-136); Anion Gap 7 mmol/L (6-16); Aspartate Aminotrans (AST/SGOT 33 U/L (12-37); Bilirubin, Total 0.4 mg/dL (0.1-1.0); Blood Urea Nitrogen 10 mg/dL (8-24); Bun/Creatinine Ratio 12.5 (12.0-20.0); CO2, Blood 26 mmol/L (21-32); Calcium, Blood 9.5 mg/dL (8.5-10.1); Chloride, Blood 104 mmol/L (98-108); Ethanol (Alcohol), Blood, Med <3 mg/dL; Globulin, Blood 3.9 g/dL (2.2-4.0); Glomerular Filtration Rate >60 (60-); Glucose, Blood 334 mg/dL (70-99); Potassium, Blood 4.2 mmol/L (3.5-5.5); Sodium, Blood 137 mmol/L (136-145); Total Protein, Blood 7.1 g/dL (6.4-8.2)
[2020-11-08 03:16] LABS: Acetaminophen, Random <2.0 ug/mL (10.0-30.0)
[2020-11-08] MEDS ORDERED: ABILIFY MYCITE10 M2 PO (03:41)
[2020-11-08] MEDS ORDERED: TOPI25C PO (03:43)
[2020-11-08] MEDS ORDERED: NOVOLOG FL100 UNIT/3 SC (03:51)
[2020-11-08 04:16] LABS: Valproic Acid 56.8 ug/mL (50.0-100.0)
[2020-11-08 04:28] LABS: SARS-Cov-2 (COVID-19) PCR, MMC NEGATIVE (NEGATIVE)
[2020-11-08 05:37] LABS: Source, Urine Voided
[2020-11-08 05:42] LABS: Appearance, Urine Clear (Clear); Bilirubin, Urine Neg (Neg); Blood, Urine Neg (Neg); Color, Urine Yellow (P-Yellow); Glucose Qualitative, Urine 4+ (Neg); Ketones, Urine Neg (Neg); Leukocyte Esterase, Urine Neg (Neg); Nitrite, Urine Neg (Neg); Protein, Urine Neg (Neg); Specific Gravity, Urine 1.025 (1.003-1.022); Urobilinogen, Urine NORM (Normal)
[2020-11-08 05:55] LABS: U Amphetamine Screen Not Detected; U Barbituate Screen Not Detected; U Benzodiazapine Screen Not Detected; U Buprenorphine Screen Not Detected; U Cannabinoids Screen Not Detected; U Cocaine Screen Not Detected; U Methadone Screen Not Detected; U Methamphetamine Screen Not Detected; U Opiates Screen Not Detected; U Phencyclidine Screen Not Detected
[2020-11-08 05:56] LABS: U Oxycodone Screen Not Detected; U Propoxyphene Screen Not Detected
== END 2020-11-08 12:13 | disposition home or self-care (01) ==
LOC: ER 01:58 → EOR 01:59
PROVIDERS: ADMIT Emergency Medicine
DX: R45.851 Suicidal ideations (principal); E11.9 Type 2 diabetes mellitus without complications; E03.9 Hypothyroidism, unspecified; J45.909 Unspecified asthma, uncomplicated; F12.90 Cannabis use, unspecified, uncomplicated; F17.210 Nicotine dependence, cigarettes, uncomplicated; Z88.2 Allergy status to sulfonamides; Z88.0 Allergy status to penicillin; Z88.1 Allergy status to other antibiotic agents; Z79.4 Long term (current) use of insulin; Z79.899 Other long term (current) drug therapy; Z20.822 Contact with and (suspected) exposure to COVID-19
CPT/HCPCS: 36415; 80053; 80164; 81003; 81025; 82947; 85025; 99285; A9270; G0378; G0480; U0004

== ENCOUNTER 2021-05-20 19:37 | Emergency (ER) | payer MEDICARE, OTHER ==
[~2021-05-20] VITALS: Ht 172.7 cm; Wt 139.7 kg
[~2021-05-20 19:37] MED LIST changes: +ABILIFY MYCITE10 M2 PO; +FLONASE ALLERG9.9 ML; -Flovent 220 Ora12 GM INH; +NOVOLOG FL100 UNIT/3 SC; +TOPI25 PO
[2021-05-20 21:15] LABS: Influenza A, PCR NEGATIVE (NEGATIVE); Influenza B, PCR NEGATIVE (NEGATIVE); Resp Syncytial Virus, PCR NEGATIVE (NEGATIVE); SARS-Cov-2 (COVID-19) PCR, MMC NEGATIVE (NEGATIVE)
[2021-05-20] MEDS ORDERED: Prednisone50 MG PO (22:05)
[2021-08-28] MEDS ORDERED: PRED20 PO (15:18)
[2021-10-31] MEDS ORDERED: TRAM50 PO (13:35)
== END 2021-05-20 22:35 | disposition home or self-care (01) ==
LOC: ER 19:37
PROVIDERS: Student in an Organized Health Care Education/Training Program
DX: J45.901 Unspecified asthma with (acute) exacerbation (principal); Z20.822 Contact with and (suspected) exposure to COVID-19; E11.9 Type 2 diabetes mellitus without complications; E03.9 Hypothyroidism, unspecified; F17.210 Nicotine dependence, cigarettes, uncomplicated; Z88.0 Allergy status to penicillin; Z88.2 Allergy status to sulfonamides; Z88.1 Allergy status to other antibiotic agents; Z88.8 Allergy status to other drugs, medicaments and biological substances; Z79.899 Other long term (current) drug therapy; Z79.84 Long term (current) use of oral hypoglycemic drugs; Z79.4 Long term (current) use of insulin
CPT/HCPCS: 0241U; 71046; 94640; 94664; 99285-25; J7512

== ENCOUNTER 2021-07-02 01:57 | Emergency (ER) | payer MEDICARE, OTHER ==
[~2021-07-02] VITALS: Ht 172.7 cm; Wt 140.2 kg
[~2021-07-02 01:57] MED LIST changes: -FLONASE ALLERG9.9 ML; +Flovent 220 Ora12 GM INH; +Prednisone50 MG PO; -TOPI25 PO; +TOPI25C PO
== END 2021-07-02 06:40 | disposition home or self-care (01) ==
LOC: ER 01:57
DX: S70.02XA Contusion of left hip, initial encounter (principal); W19.XXXA Unspecified fall, initial encounter; E11.9 Type 2 diabetes mellitus without complications; F17.210 Nicotine dependence, cigarettes, uncomplicated
CPT/HCPCS: 73502

== ENCOUNTER 2021-07-30 10:26 | Inpatient (IN) | payer MEDICARE, OTHER ==
[~2021-07-30] VITALS: Ht 172.7 cm; Wt 135.5 kg
[~2021-07-30 10:26] MED LIST changes: +FLONASE ALLERG9.9 ML; -Flovent 220 Ora12 GM INH
[2021-07-30 11:36] LABS: Alanine Aminotransfer (ALT/SGP 60 U/L (12-78); Albumin, Blood 3.2 g/dL (3.4-5.0); Albumin/Globulin Ratio 0.8 (0.8-1.8); Alk Phos 130 U/L (50-136); Anion Gap 14 mmol/L (6-16); Aspartate Aminotrans (AST/SGOT 52 U/L (12-37); Bilirubin, Total 0.7 mg/dL (0.1-1.0); Blood Urea Nitrogen 8 mg/dL (8-24); Bun/Creatinine Ratio 11.4 (12.0-20.0); CO2, Blood 25 mmol/L (21-32); Calcium, Blood 9.3 mg/dL (8.5-10.1); Chloride, Blood 97 mmol/L (98-108); Ethanol (Alcohol), Blood, Med <3 mg/dL; Globulin, Blood 3.9 g/dL (2.2-4.0); Glomerular Filtration Rate 103 (60-); Glucose, Blood 357 mg/dL (70-99); Potassium, Blood 3.9 mmol/L (3.5-5.5); Sodium, Blood 136 mmol/L (136-145); Total Protein, Blood 7.1 g/dL (6.4-8.2)
[2021-07-30 11:49] LABS: BASOPHILS ABSOLUTE AUTO 0.01 K/mm3 (0.00-0.23); BASOPHILS PERCENT AUTO 0 % (0-2); EOSINOPHILS ABSOLUTE AUTO 0.08 K/mm3 (0.00-0.68); EOSINOPHILS PERCENT AUTO 2 % (0-6); Hemoglobin 14.9 g/dL (11.5-16.0); IMMATURE GRAN ABSOLUTE AUTO 0.01 K/mm3 (0.00-0.10); IMMATURE GRAN PERCENT AUTO 0 % (0-1); LYMPHOCYTES ABSOLUTE AUTO 1.19 K/mm3 (0.84-5.20); LYMPHOCYTES PERCENT AUTO 30 % (21-46); MONOCYTES ABSOLUTE AUTO 0.16 K/mm3 (0.16-1.47); MONOCYTES PERCENT AUTO 4 % (4-13); Mean Corpuscular HGB 29.9 pg (26.0-34.0); Mean Corpuscular HGB Conc 33.1 g/dL (31.5-36.5); Mean Corpuscular Volume 90 fL (80-100); Mean Platelet Volume 10.8 fL (9.1-12.4); NEUTROPHILS ABSOLUTE AUTO 2.48 K/mm3 (1.96-9.15); NEUTROPHILS PERCENT AUTO 63 % (41-73); Platelet Count 70 K/mm3 (150-400); RDW Coefficient Variation 12.8 % (11.7-14.2); RDW Standard Deviation 41.7 fL (35.1-46.3); Red Blood Cell Count 4.99 M/mm3 (3.80-5.20); White Blood Cell Count 3.93 K/mm3 (4.00-11.30)
[2021-07-30 11:50] LABS: U Amphetamine Screen Not Detected; U Barbituate Screen Not Detected; U Benzodiazapine Screen Not Detected; U Buprenorphine Screen Not Detected; U Cannabinoids Screen DETECTED; U Cocaine Screen Not Detected; U Methadone Screen Not Detected; U Methamphetamine Screen Not Detected; U Opiates Screen Not Detected; U Oxycodone Screen Not Detected; U Phencyclidine Screen Not Detected; U Propoxyphene Screen Not Detected
[2021-07-30 12:45] LABS: Influenza A, PCR NEGATIVE (NEGATIVE); Influenza B, PCR NEGATIVE (NEGATIVE); Resp Syncytial Virus, PCR NEGATIVE (NEGATIVE); SARS-Cov-2 (COVID-19) PCR, MMC NEGATIVE (NEGATIVE)
[2021-07-30 12:58] LABS: Base Excess Venous -0.4 mmol/L; Bicarbonate Venous 23.2 mmol/L (24.0-30.0); PCO2 Venous 45.5 mmHg (38-42); PO2 Venous 42.6 mmHg (38-42); pH Blood Venous 7.35 (7.34-7.37)
--- NOTE | 2021-07-30 18:30 | NUR ---
END OF SHIFT: PLEASE SEE SHIFT ASSESSMENT, PATIENT HAS NO CHANGES FROM SUMMARY.
[2021-07-31 05:09] LABS: Hematocrit 35.5 % (33.0-51.0); Hemoglobin 11.9 g/dL (11.5-16.0); Mean Corpuscular HGB 29.9 pg (26.0-34.0); Mean Corpuscular HGB Conc 33.5 g/dL (31.5-36.5); Mean Corpuscular Volume 89 fL (80-100); Mean Platelet Volume 11.1 fL (9.1-12.4); Platelet Count 86 K/mm3 (150-400); RDW Coefficient Variation 12.9 % (11.7-14.2); RDW Standard Deviation 42.2 fL (35.1-46.3); Red Blood Cell Count 3.98 M/mm3 (3.80-5.20); White Blood Cell Count 9.18 K/mm3 (4.00-11.30)
[2021-07-31 05:34] LABS: BAND PERCENT MAN 18 % (0-8); BASOPHILS PERCENT MAN 0 % (0-2); EOSINOPHILS PERCENT MAN 0 % (0-6); LYMPHOCYTES ABSOLUTE MAN 1.46 K/mm3 (0.84-5.20); LYMPHOCYTES PERCENT MAN 16 % (21-46); METAMYELOCYTE ABSOLUTE MAN 0.09 K/mm3 (0.00-0.00); METAMYELOCYTE PERCENT MAN 1 % (0-0); MONOCYTES ABSOLUTE MAN 0.36 K/mm3 (0.16-1.47); MONOCYTES PERCENT MAN 4 % (4-13); NEUTROPHILS ABSOLUTE MAN 7.25 K/mm3 (1.96-9.15); SEG NEUTROPHILS PERCENT MAN 61 % (41-73); TOTAL CELLS COUNTED 100
[2021-07-31 05:50] LABS: Albumin, Blood 2.6 g/dL (3.4-5.0); Albumin/Globulin Ratio 0.7 (0.8-1.8); Bilirubin, Total 0.8 mg/dL (0.1-1.0); Bun/Creatinine Ratio 23.5 (12.0-20.0); Calcium, Blood 8.6 mg/dL (8.5-10.1); Creatinine, Blood 0.72 mg/dL (0.40-1.00); Globulin, Blood 3.5 g/dL (2.2-4.0); Magnesium, Blood 1.7 mg/dL (1.6-2.4); Potassium, Blood 4.1 mmol/L (3.5-5.5); Total Protein, Blood 6.1 g/dL (6.4-8.2)
--- NOTE | 2021-07-31 06:15 | NUR ---
SHIFT SUMMARY ASSUMED CARE OF PT AROUND 1900. PT IS A/OX4 BUT VERY LETHARGIC. PT KNEW WHAT KINDS OF MEDICATIONS SHE NEEDED BUT COULD NOT SAY THE EXACT AMOUNT AND WOULD FALL ASLEEP SOON AFTER ENDING A CONVERSATION. HEART SOUNDS REGULAR. LUNG SOUNDS ARE VERY COURSE. PT HAS JESSICA COUGHING UP THICK BROWN SPUTUM. PT WORE CPAP MOST OF THE NIGHT. PT REMAINED ON 2L WHILE AWAKE, PT WAS RA UNTIL SHE FELL ASLEEP, WHEN SHE WOULD HANG AROUND 90%. PT ABD IS DISTENDED. PT STATES IT IS MORE BLOATED THAN NORMAL BUT SHE ALSO HAS A HERNIA. PT [place] DRAINING CLEAR YELLOW URINE. PT WAS A 1P SBA TO BSC. NO ACUTE EVENTS DURING THE NIGHT.
[2021-07-31 15:25] LABS: Vancomycin, Trough 23.2 ug/mL (5.0-10.0)
--- NOTE | 2021-07-31 16:29 | NUR ---
END OF SHIFHT: LEYLA JENKINS BEEN REPOSITIONED Q2, HAS BEEN AFEBRILE BUT INCREASED TO 100.1 DURING EVENING VITALS WILL CALL PROVIDER FOR PRN TYLENOL. SPO2 >93% ON RA, 2L VIA NC FOR COMFORT. PATIENT DENIES CHEST PAIN OR SOB, INCREASING COUGH WILL PLACE CALL TO PROVIDER FOR RECOMENDATIONS. GUS JENKINS BEEN MORE ALERT AND LESS SLEEPY THROUGH THE SHIFT, MED REC FINISHED BY ELECTRICAL MAINTENANCE TECHNICIAN AND HOME MED LIST COMBINATION. PATIENT POOR HISTORIAN. PROVIDER WATCHING CASE CLOSELY, NO WORRIES FOR THE PATIENT FROM THIS UNDERGROUND ROOF BOLTER AT THIS TIME WILL CONTINUE TO MONITOR UNTIL SHIFT CHANGE.
--- NOTE | 2021-08-01 01:21 | NUR ---
CARE ASSUMPTION: RECEIVED REPORT FROM NALINI HUTSON RN. PATIENT IN CHAIR RECEIVING BREATHING TREATMENT FROM RT. PATIENT APPEARS TO FALL ASLEEP WHEN BEING SPOKEN TO. A&O X4 WHEN AWAKE, BUT VERY DROWSY. VS WNL ON 2L NC, LUNGS WHEEZY T/O. PATIENT AMBULATED TO BED. MEDICATED PER EMAR. BED LOW WITH CALL LIGHT IN REACH. FLUIDS RUNNING PER EMAR.
[2021-08-01 04:47] LABS: BASOPHILS ABSOLUTE AUTO 0.04 K/mm3 (0.00-0.23); BASOPHILS PERCENT AUTO 0 % (0-2); EOSINOPHILS ABSOLUTE AUTO 0.04 K/mm3 (0.00-0.68); EOSINOPHILS PERCENT AUTO 0 % (0-6); Hematocrit 36.2 % (33.0-51.0); Hemoglobin 11.9 g/dL (11.5-16.0); IMMATURE GRAN ABSOLUTE AUTO 0.22 K/mm3 (0.00-0.10); IMMATURE GRAN PERCENT AUTO 2 % (0-1); LYMPHOCYTES ABSOLUTE AUTO 1.92 K/mm3 (0.84-5.20); LYMPHOCYTES PERCENT AUTO 19 % (21-46); MONOCYTES ABSOLUTE AUTO 0.39 K/mm3 (0.16-1.47); MONOCYTES PERCENT AUTO 4 % (4-13); Mean Corpuscular HGB 30.1 pg (26.0-34.0); Mean Corpuscular HGB Conc 32.9 g/dL (31.5-36.5); Mean Corpuscular Volume 91 fL (80-100); Mean Platelet Volume 10.7 fL (9.1-12.4); NEUTROPHILS ABSOLUTE AUTO 7.38 K/mm3 (1.96-9.15); NEUTROPHILS PERCENT AUTO 74 % (41-73); Platelet Count 102 K/mm3 (150-400); RDW Coefficient Variation 13.1 % (11.7-14.2); RDW Standard Deviation 43.8 fL (35.1-46.3); Red Blood Cell Count 3.96 M/mm3 (3.80-5.20); White Blood Cell Count 9.99 K/mm3 (4.00-11.30)
--- NOTE | 2021-08-01 06:38 | NUR ---
SHIFT SUMMARY: PATIENT LETHARGIC AND DIFFICULT TO AROUSE T/O SHIFT. MEDICATED PER EMAR AND CBGS TRENDING DOWN. PATIENT SLEPT WITH CPAP IN PLACE MOST OF THE NIGHT, BREATHING SHALLOW AND RAPID AT TIMES, WITH HACKING COUGH. AT 0400 PATIENT COMPLAINED OF IV SITE PAIN. BOTH IV SITES FLUSH WELL, AND DO NOT HAVE ANY SWELLING, LEAKING, OR REDNESS. DISCONNECTED NS TO GIVE ARM A REST. PATIENT ALSO HAD A FEVER AT ~0400 WHICH RESOLVED WITH ACETAMINOPHEN DOSE. PATIENT USED BSC AND SPENT SOME TIME IN CHAIR BEFORE CALLING TO MOVE BACK TO BED SHE WAS FALLING BACK ASLEEP. BED LOW WITH CALL LIGHT IN REACH. WILL CONTINUE TO MONITOR AND REPORT TO ONCOMING RN.
[2021-08-01] MEDS ORDERED: CEFD300 PO (14:40)
--- NOTE | 2021-08-01 15:48 | NUR ---
DISCHARGE SUMMARY: PATIENT DID NOT RECIEVE HOME O2 PATIENT DID NOT QUALIFY FOR HOME O2. PATIENT HADBOTH IV"S REMOVED AND TELE REMOVED. PATIENT DENIES CHEST PAIN, SOB, AFEBRILE AT TIME OF DISCHARGE, PATIENT AND WERE INFORMED OF DISCHARGE INSTRUCTIONS, WITH COMPLETE UNDERSTANDING, ADVISED FROM MULTIPLE STAFF THAT ANOTHER NIGHT OF IV ANTIBIOTICS SHOULD HAPPEN. PATIENT DENIES NEED AND WANTS TO LEAVE. PATEINT AND THIS ARTS THERAPIST HAVE NO FURTHER CONCERNS OR QUESTIONS AT THIS TIME.
--- NOTE | 2021-08-01 15:59 | NUR ---
PATIENT WHEELED OUT BY RN TO POV,
[2021-08-28] MEDS ORDERED: PRED20 PO (15:18)
== END 2021-08-01 15:44 | disposition home or self-care (01) | DRG 871 ==
LOC: ER 10:26 → PCU 13:50
PROVIDERS: Emergency Medicine; ADMIT Family Medicine
PROC: 5A09357 Assistance with Respiratory Ventilation, Less than 24 Consecutive Hours, Continuous Positive Airway Pressure (ICD-10-PCS; principal; 2021-07-30)
PROC: 3E03329 Introduction of Other Anti-infective into Peripheral Vein, Percutaneous Approach (ICD-10-PCS; 2021-07-30)
DX: A41.9 Sepsis, unspecified organism (principal); J18.9 Pneumonia, unspecified organism; J96.01 Acute respiratory failure with hypoxia; Z68.41 Body mass index [BMI] 40.0-44.9, adult; E87.2 Acidosis; R65.20 Severe sepsis without septic shock; Z20.822 Contact with and (suspected) exposure to COVID-19; B96.89 Other specified bacterial agents as the cause of diseases classified elsewhere; E11.9 Type 2 diabetes mellitus without complications; E66.9 Obesity, unspecified; F31.9 Bipolar disorder, unspecified; F25.9 Schizoaffective disorder, unspecified; R41.82 Altered mental status, unspecified; G47.30 Sleep apnea, unspecified; E03.9 Hypothyroidism, unspecified; J45.909 Unspecified asthma, uncomplicated; G89.29 Other chronic pain; M54.9 Dorsalgia, unspecified; F12.90 Cannabis use, unspecified, uncomplicated; F17.290 Nicotine dependence, other tobacco product, uncomplicated; Z79.51 Long term (current) use of inhaled steroids; Z79.4 Long term (current) use of insulin; Z79.52 Long term (current) use of systemic steroids; Z79.899 Other long term (current) drug therapy; Z88.0 Allergy status to penicillin; Z88.1 Allergy status to other antibiotic agents; Z88.2 Allergy status to sulfonamides; Z88.8 Allergy status to other drugs, medicaments and biological substances
CPT/HCPCS: 0241U; 36415; 51702; 71045; 80053; 80202; 82140; 82803; 82947; 83036; 83605; 83735; 83880; 84100; 84145; 84484; 85025; 87040; 87070; 87205; 93005; 93010; 94640; 94660; 94664; 94761; 94762; 96365-59; 96366-59; 96375-59; 97116; 97162; 97166; 97535; 99285-25; A9270; G0480; J0456; J0696; J1650; J1815; J2543; J3370; J3475; J7030; J7050; J7060

== ENCOUNTER 2021-08-01 22:17 | Inpatient (IN) | payer MEDICARE, OTHER ==
[~2021-08-01] VITALS: Ht 172.7 cm; Wt 131.0 kg
[~2021-08-01 22:17] MED LIST changes: +CEFD300 PO
[2021-08-01 22:54] LABS: Base Excess Venous 1.9 mmol/L; Bicarbonate Venous 25.9 mmol/L (24.0-30.0); PCO2 Venous 39.9 mmHg (38-42); pH Blood Venous 7.43 (7.34-7.37)
[2021-08-01 23:04] LABS: BASOPHILS ABSOLUTE AUTO 0.03 K/mm3 (0.00-0.23); BASOPHILS PERCENT AUTO 0 % (0-2); EOSINOPHILS ABSOLUTE AUTO 0.03 K/mm3 (0.00-0.68); EOSINOPHILS PERCENT AUTO 0 % (0-6); Hematocrit 32.7 % (33.0-51.0); Hemoglobin 10.9 g/dL (11.5-16.0); IMMATURE GRAN ABSOLUTE AUTO 0.15 K/mm3 (0.00-0.10); IMMATURE GRAN PERCENT AUTO 2 % (0-1); LYMPHOCYTES ABSOLUTE AUTO 1.34 K/mm3 (0.84-5.20); LYMPHOCYTES PERCENT AUTO 18 % (21-46); MONOCYTES ABSOLUTE AUTO 0.38 K/mm3 (0.16-1.47); MONOCYTES PERCENT AUTO 5 % (4-13); Mean Corpuscular HGB 29.9 pg (26.0-34.0); Mean Corpuscular HGB Conc 33.3 g/dL (31.5-36.5); Mean Corpuscular Volume 90 fL (80-100); Mean Platelet Volume 10.5 fL (9.1-12.4); NEUTROPHILS ABSOLUTE AUTO 5.34 K/mm3 (1.96-9.15); NEUTROPHILS PERCENT AUTO 74 % (41-73); Platelet Count 91 K/mm3 (150-400); RDW Coefficient Variation 12.6 % (11.7-14.2); Red Blood Cell Count 3.65 M/mm3 (3.80-5.20); White Blood Cell Count 7.27 K/mm3 (4.00-11.30)
[2021-08-01 23:14] LABS: Alanine Aminotransfer (ALT/SGP 41 U/L (12-78); Albumin, Blood 2.2 g/dL (3.4-5.0); Albumin/Globulin Ratio 0.6 (0.8-1.8); Alk Phos 87 U/L (50-136); Anion Gap 8 mmol/L (6-16); Aspartate Aminotrans (AST/SGOT 39 U/L (12-37); Bilirubin, Total 0.8 mg/dL (0.1-1.0); Blood Urea Nitrogen 10 mg/dL (8-24); Bun/Creatinine Ratio 14.7 (12.0-20.0); CO2, Blood 27 mmol/L (21-32); Calcium, Blood 9.2 mg/dL (8.5-10.1); Chloride, Blood 102 mmol/L (98-108); Creatinine, Blood 0.68 mg/dL (0.40-1.00); Glomerular Filtration Rate 104 (60-); Glucose, Blood 310 mg/dL (70-99); Sodium, Blood 137 mmol/L (136-145); Total Protein, Blood 6.2 g/dL (6.4-8.2); Valproic Acid 110.7 ug/mL (50.0-100.0)
[2021-08-01 23:37] LABS: Ethanol (Alcohol), Blood, Med <3 mg/dL
[2021-08-01 23:39] LABS: C-REACTIVE PROTEIN, EXT RANGE >19.000 mg/dL (0.000-0.300)
[2021-08-01 23:57] LABS: Influenza A, PCR NEGATIVE (NEGATIVE); Influenza B, PCR NEGATIVE (NEGATIVE); Resp Syncytial Virus, PCR NEGATIVE (NEGATIVE); SARS-Cov-2 (COVID-19) PCR, MMC NEGATIVE (NEGATIVE)
--- NOTE | 2021-08-02 01:50 | NUR ---
PATIENT ARRIVED TO ICU 9 VIA GURNEY FROM ED. PCU STATUS. PATIENT TRANSFERRED TO ICU BED WITH SLIDER SHEET AND PLACED ON ICU MONITOR. PATIENT HAVING ONLY SLIGHT REACTION TO STIMULI. HUANG. BIOX LOW 90'S ON 2L/NC. PATIENT INCONT OF MOD AMT OF URINE. PUREWICK NOT CATCHING ANY URINE, DEVICE REMOVED.
[2021-08-02 03:02] LABS: BASOPHILS ABSOLUTE AUTO 0.02 K/mm3 (0.00-0.23); BASOPHILS PERCENT AUTO 0 % (0-2); EOSINOPHILS ABSOLUTE AUTO 0.04 K/mm3 (0.00-0.68); EOSINOPHILS PERCENT AUTO 1 % (0-6); Hematocrit 33.6 % (33.0-51.0); Hemoglobin 11.2 g/dL (11.5-16.0); IMMATURE GRAN ABSOLUTE AUTO 0.16 K/mm3 (0.00-0.10); IMMATURE GRAN PERCENT AUTO 2 % (0-1); LYMPHOCYTES ABSOLUTE AUTO 1.74 K/mm3 (0.84-5.20); LYMPHOCYTES PERCENT AUTO 26 % (21-46); MONOCYTES ABSOLUTE AUTO 0.34 K/mm3 (0.16-1.47); MONOCYTES PERCENT AUTO 5 % (4-13); Mean Corpuscular HGB 30.1 pg (26.0-34.0); Mean Corpuscular HGB Conc 33.3 g/dL (31.5-36.5); Mean Corpuscular Volume 90 fL (80-100); Mean Platelet Volume 10.4 fL (9.1-12.4); NEUTROPHILS ABSOLUTE AUTO 4.33 K/mm3 (1.96-9.15); NEUTROPHILS PERCENT AUTO 65 % (41-73); Platelet Count 89 K/mm3 (150-400); RDW Coefficient Variation 12.7 % (11.7-14.2); RDW Standard Deviation 42.1 fL (35.1-46.3); Red Blood Cell Count 3.72 M/mm3 (3.80-5.20); White Blood Cell Count 6.63 K/mm3 (4.00-11.30)
[2021-08-02 03:18] LABS: Albumin, Blood 2.1 g/dL (3.4-5.0); Albumin/Globulin Ratio 0.5 (0.8-1.8); Bilirubin, Total 0.6 mg/dL (0.1-1.0); Bun/Creatinine Ratio 13.9 (12.0-20.0); Calcium, Blood 8.9 mg/dL (8.5-10.1); Creatinine, Blood 0.72 mg/dL (0.40-1.00); Globulin, Blood 4.2 g/dL (2.2-4.0); Potassium, Blood 3.7 mmol/L (3.5-5.5); Total Protein, Blood 6.3 g/dL (6.4-8.2)
[2021-08-02 03:35] LABS: Source, Urine Foley catheter
[2021-08-02 03:48] LABS: Bilirubin, Urine Neg (Neg); Blood, Urine 1+ (Neg); Glucose Qualitative, Urine 3+ (Neg); Ketones, Urine Neg (Neg); Leukocyte Esterase, Urine Neg (Neg); Nitrite, Urine Neg (Neg); Protein, Urine 1+ (Neg); Urobilinogen, Urine NORM (Normal); pH, Urine 6.5 (5.0-8.0)
[2021-08-02 04:05] LABS: Appearance, Urine Hazy (Clear); Bacteria Not Seen /hpf; Color, Urine Yellow (P-Yellow); Red Blood Cells, Urine 0-2 /hpf (0-2); Squamous Epithelial Cells Not Seen /hpf (Few); White Blood Cells, Urine Not Seen /hpf (0-5)
[2021-08-02 04:22] LABS: U Amphetamine Screen Not Detected; U Barbituate Screen Not Detected; U Benzodiazapine Screen Not Detected; U Buprenorphine Screen Not Detected; U Cannabinoids Screen Not Detected; U Cocaine Screen Not Detected; U Methadone Screen Not Detected; U Methamphetamine Screen Not Detected; U Opiates Screen Not Detected; U Oxycodone Screen Not Detected; U Phencyclidine Screen Not Detected; U Propoxyphene Screen Not Detected
[2021-08-02 04:53] LABS: PCO2 Arterial 44.9 mmHg (35-45); PO2 Arterial 60.5 mmHg (80-100); pH Blood Arterial 7.41 (7.35-7.45)
--- NOTE | 2021-08-02 04:57 | NUR ---
PATIENT CONTINUES TO ONLY RESPOND TO NOXIOUS STIMULI. WHEN AWAKE OPENS EYES AND SAYING ONE OR TWO WORDS. MAE. ENCINAS. NOT FOLLOWING DIRECTIONS. [place] PLACED DRAINING DARK HAZY YELLOW URINE. RESPIRATIONS SOUND WET, DEEP ORAL SUCTION OBTAINED SMALL AMT OF THICK TSAI SPUTUM. STRONG COUGH AFTER SUCTIONING YET CONTINUES TO HAVE RHONCHI. DURING ORAL CARE PATIENT PUSHING SUCTION SWAB AWAY AND CLOSING MOUTH. CONTINUES TO NOT FOLLOW DIRECTIONS. SLEEPING WHEN UNDISTURBED.
--- NOTE | 2021-08-02 06:30 | NUR ---
SUMMARY PATIENT OPENING EYES TO HER NAME BEING CALLED THAN FALLING BACK TO SLEEP, CONTINUES TO NOT FOLLOW DIRECTIONS. WITH REPOSITIONING IN BED PATIENTS BIOX DOWN TO 87% OXYGEN INCREASED TO 6L/NC
--- NOTE | 2021-08-02 08:00 | NUR ---
INITIAL ASSESSMENT PATIENT OBTUNDED. PATIENT RESPONDS TO VERBAL STIMULI AND QUESTIONS WITH SOUNDS. PATIENT LOCALIZING MOVEMENTS. PATIENT AFEBRILE. NO SIGNS OF PAIN NOTED. LUNGS COARSE THROUGHOUT. PATIENT COUGHING UP LARGE AMOUNT OF DARK TSAI, STICKY, VERY THICK SPUTUM THIS AM. RR 30S TO 40S. PATIENT SATTING 90% AND GREATER ON 6 L NC. PATIENT IN SR, HR IN THE 80S. SBP IN THE LOW 100S. SCDS IN PLACE. GI APPEARS WNL. DATE OF LAST BM UNKNOWN. [place] DRAINING DARK YELLOW COLORED URINE. NO SKIN ISSUES NOTED. LR INFUSING AT 125 MLS/ HOUR, NS TKO. BED LOW, CALL LIGHT IN REACH. WILL CONTINUE TO MONITOR PATIENT FREQUENTLY THROUGHOUT SHIFT.
--- NOTE | 2021-08-02 13:00 | NUR ---
PATIENT AFEBRILE. NO COMPLAINTS OF PAIN. PATIENT ALERT AND ORIENTED X 4, BUT REMAINS LETHARGIC. PATIENT ABLE TO STAY AWAKE FOR QUESTIONING BUT SLOW TO RESPOND. PATIENT CALM AND COOPERATIVE. HR IN THE 80S. SBP IN THE LOW 100S. URINE DARK ORANGE IN COLOR. BLOOD SUGAR 153; COVERAGE GIVEN. NO OTHER ACUTE CHANGES TO NOTE ON AT THIS TIME. WILL CONTINUE TO MONITOR.
--- NOTE | 2021-08-02 14:26 | NUR ---
DR. PACE UPDATED ON PATIENT AND TO ROOM TO SEE PATIENT. INFORMED THAT PATIENT SATTING 90% AND GREATER ON 6 L NC. INFORMED THAT PATIENT ALERT AND ORIENTED AND MORE AWAKE BUT STILL LETHARGIC. INFORMED THAT SPUTUM LARGE AMOUNT, DARK TSAI AND THICK AND STICKY. INFORMED THAT MED REC COMPLETE. ORDERS RECEIVED.
--- NOTE | 2021-08-02 16:18 | NUR ---
PATIENT AFEBRILE. HR IN THE 80S. SBP IN THE 130S. BLOOD SUGAR 162; COVERAGE GIVEN. PATIENT REMAINS SLEEPING ON AND OFF. NO OTHER ACUTE CHANGES TO NOTE ON AT THIS TIME. NO COMPLAINTS. WILL CONTINUE TO MONITOR.
--- NOTE | 2021-08-02 19:11 | NUR ---
SHIFT SUMMARY PATIENT SLEPT ON AND OFF THROUGHOUT SHIFT. PATIENT OBTUNDED THIS AM AND ONLY ANWERING SOME QUESTIONS WITH SOUNDS. PATIENT HAS BECOME MORE AWAKE NOW AND IS ALERT AND ORIENTED X 4. PATIENT ABLE TO MOVE ALL EXTREMITIES BUT NEEDS HELP WITH REPOSITIONING. PATIENT AFEBRILE. PATIENT GIVEN PRN OT FOR COMPLAINT OF HEADACHE. LUNGS REMAINED COARSE THROUGHOUT. PATIENT REMAINED SATTING 90% AND GREATER ON 6 L NC. PATIENT COUGHING UP MEDIUM TO LARGE AMOUNTS OF DARK TSAI, STICKY, THICK PHLEGM. SPUTUM CULTURE OBTAINED. PATIENT REMAINED IN SR, HR IN THE 80S. SBP 90S TO 130S. NO BM THIS SHIFT. PATIENT TOLERATED ADA DIET WELL. BLOOD SUGARS IN THE 100S. [place] DRAINED 900 MLS OF DARK ORANGE COLORED URINE. NS TKO FOR ANTIBIOTICS. PATIENT HAD COMPLETE BED BATH. MED REC COMPLETED THIS SHIFT. BED LOW, CALL LIGHT IN REACH. REPORT GIVEN TO ONCOMING PHYSICS PROFESSOR NURSE.
[2021-08-03 05:36] LABS: Hematocrit 35.4 % (33.0-51.0); Hemoglobin 11.6 g/dL (11.5-16.0); Mean Corpuscular HGB 29.7 pg (26.0-34.0); Mean Corpuscular HGB Conc 32.8 g/dL (31.5-36.5); Mean Corpuscular Volume 91 fL (80-100); Mean Platelet Volume 10.2 fL (9.1-12.4); Platelet Count 105 K/mm3 (150-400); RDW Coefficient Variation 12.5 % (11.7-14.2); RDW Standard Deviation 41.5 fL (35.1-46.3); White Blood Cell Count 5.15 K/mm3 (4.00-11.30)
[2021-08-03 05:49] LABS: Anion Gap 8 mmol/L (6-16); Blood Urea Nitrogen 10 mg/dL (8-24); Bun/Creatinine Ratio 15.7 (12.0-20.0); CO2, Blood 25 mmol/L (21-32); Chloride, Blood 102 mmol/L (98-108); Creatinine, Blood 0.64 mg/dL (0.40-1.00); Glomerular Filtration Rate 106 (60-); Glucose, Blood 212 mg/dL (70-99); Magnesium, Blood 1.9 mg/dL (1.6-2.4); Potassium, Blood 3.9 mmol/L (3.5-5.5); Sodium, Blood 135 mmol/L (136-145)
[2021-08-03 06:09] LABS: BAND PERCENT MAN 4 % (0-8); BASOPHILS PERCENT MAN 0 % (0-2); EOSINOPHILS ABSOLUTE MAN 0.25 K/mm3 (0.00-0.68); EOSINOPHILS PERCENT MAN 5 % (0-6); LYMPHOCYTES ABSOLUTE MAN 1.28 K/mm3 (0.84-5.20); LYMPHOCYTES PERCENT MAN 25 % (21-46); MONOCYTES ABSOLUTE MAN 0.36 K/mm3 (0.16-1.47); MONOCYTES PERCENT MAN 7 % (4-13); MYELOCYTE ABSOLUTE MAN 0.15 K/mm3 (0.00-0.00); MYELOCYTE PERCENT MAN 3 % (0-0); NEUTROPHILS ABSOLUTE MAN 3.09 K/mm3 (1.96-9.15); SEG NEUTROPHILS PERCENT MAN 56 % (41-73); TOTAL CELLS COUNTED 100
--- NOTE | 2021-08-03 06:16 | NUR ---
ELECTRICAL PROJECT ENGINEER SUMMARY PT TRANSFERED FROM ICU9 TONIGHT. PT AAOX4 AND PLEASANT. ON 6L O2 VIA NC. LUNG SOUNDS COARSE AND PT STILL COUGHING UP THICK PHLEGM ON OCCASION. [place] CATH IN PLACE DRAINING YELLOW URINE. PT ABLE TO ASSIST WITH REPOSITIONING FAIRLY WELL BUT STILL WEAK. CONTINUING IV ABX. VSS, WILL CONTINUE TO MONITOR.
--- NOTE | 2021-08-03 15:18 | NUR ---
SHIFT SUMMARY: PNEUMONIA PATIENT IS A&OX4. PATIENT IS CURRENTLY ON 2L NC WITH >90% OXYGEN SATS. PATIENT DENIES SOB BUT DOES HAVE A PRODUCTIVE WET COUGH. PHLEGM IS TANISH-PINK COLORED. PATIENT IS ALSO ON CONTINUOUS BIOX. PATIENT REPORTED HAVING A HEADACHE AND RECIEVED PO TYLENOL THAT HELPED. SHE IS TOLERATING PO INTAKE, VOIDING, AND HAD A BM TODAY. PATIENT ALSO RECIEVED A SHOWER WHICH SEEMED TO BRIGHTEN HER MOOD MORE. ENCOURAGING HER TO USE THE INCENTIVE SPIROMETER AND FLUTTER AT BEDSIDE. PATIENT IS SBA TO THE BATHROOM DUE TO ALL THE CORDS. CALLS APPROPRIATELY. CALL LIGHT WITHIN REACH. THE PLAN IS TO CONTINUE IV ABX AND USE OF INCENTIVE SPIROMETER/FLUTTER.
--- NOTE | 2021-08-04 04:08 | NUR ---
SHIFT SUMMARY NO ACUTE CHANGES THIS SHIFT. ON 2L O2 VIA NC. LUNG SOUNDS REMAIN COARSE ON THE RIGHT SIDE AND DIM ON THE LEFT. CONT TO ENCOURAGE I/S. INDEP IN ROOM. IV ABX PER ORDERS. PT RESTED T/O NIGHT. CALL LIGHT WITHIN REACH.
[2021-08-04 05:19] LABS: Hematocrit 34.4 % (33.0-51.0); Hemoglobin 11.3 g/dL (11.5-16.0); Mean Corpuscular HGB 29.7 pg (26.0-34.0); Mean Corpuscular HGB Conc 32.8 g/dL (31.5-36.5); Mean Corpuscular Volume 90 fL (80-100); NRBC ABSOLUTE 0.02 K/mm3 (0.00-0.02); NRBC Auto 0.3 /100 WBC (0.0-0.2); Platelet Count 126 K/mm3 (150-400); RDW Coefficient Variation 12.5 % (11.7-14.2); RDW Standard Deviation 41.4 fL (35.1-46.3); Red Blood Cell Count 3.81 M/mm3 (3.80-5.20)
[2021-08-04 05:51] LABS: BAND PERCENT MAN 4 % (0-8); BASOPHILS PERCENT MAN 0 % (0-2); EOSINOPHILS ABSOLUTE MAN 0.34 K/mm3 (0.00-0.68); EOSINOPHILS PERCENT MAN 6 % (0-6); LYMPHOCYTES ABSOLUTE MAN 1.56 K/mm3 (0.84-5.20); LYMPHOCYTES PERCENT MAN 27 % (21-46); METAMYELOCYTE ABSOLUTE MAN 0.11 K/mm3 (0.00-0.00); METAMYELOCYTE PERCENT MAN 2 % (0-0); MONOCYTES ABSOLUTE MAN 0.46 K/mm3 (0.16-1.47); MONOCYTES PERCENT MAN 8 % (4-13); SEG NEUTROPHILS PERCENT MAN 53 % (41-73); TOTAL CELLS COUNTED 100
[2021-08-04 06:10] LABS: Albumin, Blood 1.9 g/dL (3.4-5.0); Anion Gap 7 mmol/L (6-16); Blood Urea Nitrogen 8 mg/dL (8-24); Bun/Creatinine Ratio 11.9 (12.0-20.0); CO2, Blood 27 mmol/L (21-32); Calcium, Blood 9.5 mg/dL (8.5-10.1); Chloride, Blood 103 mmol/L (98-108); Creatinine, Blood 0.68 mg/dL (0.40-1.00); Glomerular Filtration Rate 104 (60-); Glucose, Blood 271 mg/dL (70-99); Magnesium, Blood 1.7 mg/dL (1.6-2.4); Phosphorus, Blood 3.4 mg/dL (2.5-4.9); Potassium, Blood 3.7 mmol/L (3.5-5.5); Sodium, Blood 137 mmol/L (136-145)
--- NOTE | 2021-08-04 07:24 | NUR ---
ASSUMED CARE OF PATIENT. PATIENT SITTING UPRIGHT IN BED, APPEARS TO BE SLEEPING.
--- NOTE | 2021-08-04 12:48 | NUR ---
PATIENT CONTINUES TO SLEEP, AWAKES WHEN TALKING TO HER AND RESPONDS APPROPRIATELY, BUT FALLS BACK ASLEEP QUICKLY. HAVE TO RE WAKE TO CARRY ON A CONVERSATION. O2 SATS HOLDING ABOUT 88-89, ENCOURAGED DEEP BREATHS THROUGH THE NOSE ALTHOUGH THE PATIENT APPEARS TO BE A MOUTH BREATHER. ENCOURAGED HER TO TAKEDEEP BREATHS THROUGH HER NOSE, DOES NOT FOLLOW INSTRUCTIONS WELL. ASKED PATIENT IF I COULD PUT NASAL CANULA IN HER MOUTH AND SHE REFUSED. INCREASED O2 TO 3L AT THIS TIME, SATS 91%. WILL CONTINUE TO ENCOURAGE DEEP BREATHING, INCENTIVE SPIROMETER USE, & COUGHING.
--- NOTE | 2021-08-04 14:30 | NUR ---
PATIENT REMAINS LETHARGIC. DR PACE CONTACTED AND UPDATED ON PATIENT, GAVE TELEPHONE ORDERS FOR STAT VENOUS BLOOD GAS AND BMP. STATED HE WILL COME SEE PATIENT.
[2021-08-04 14:53] LABS: Base Excess Venous 3.6 mmol/L; Bicarbonate Venous 27.4 mmol/L (24.0-30.0); PCO2 Venous 40.2 mmHg (38-42); PO2 Venous 95.7 mmHg (38-42); pH Blood Venous 7.45 (7.34-7.37)
--- NOTE | 2021-08-04 15:00 | NUR ---
DR PACE AT BEDSIDE, AWARE OF BLOOD GAS RESULTS. NO NEW ORDERS GIVEN. STATED PATIENT NEEDS TO WEAR CPAP AT BEDTIME, "DONT GIVE HER AN OPTION". PATIENT MORE AWAKE AND IS TALKING WITH STAFF. IS STILL STATING, "I FEEL DIFFERENT". WILL CONTINUE TO MONITOR.
[2021-08-04 15:29] LABS: Anion Gap 9 mmol/L (6-16); Blood Urea Nitrogen 8 mg/dL (8-24); Bun/Creatinine Ratio 9.4 (12.0-20.0); CO2, Blood 26 mmol/L (21-32); Calcium, Blood 9.3 mg/dL (8.5-10.1); Chloride, Blood 103 mmol/L (98-108); Creatinine, Blood 0.86 mg/dL (0.40-1.00); Glomerular Filtration Rate 81 (60-); Glucose, Blood 276 mg/dL (70-99); Potassium, Blood 4.3 mmol/L (3.5-5.5); Sodium, Blood 138 mmol/L (136-145); Vancomycin, Trough 15.2 ug/mL (5.0-10.0)
[2021-08-04] MEDS ORDERED: OMEP20ER PO (17:02)
--- NOTE | 2021-08-04 17:05 | NUR ---
PATIENT HAD HOME MED LIST BROUGHT IN, THIS RN UPDATED THE MED REC. CONTACTED DR PACE REGARDING THE DOSING ERROR FOR PATIENTS GABAPENTIN. WAS ORDERED 2400 MG BID, PATIENT NORMALLY TAKES [address] PACE GAVE VERBAL ORDERS TO CHANGE GABAPENTIN ORDER.
--- NOTE | 2021-08-04 18:35 | NUR ---
SHIFT SUMMARY PATIENT WAS LETHARGIC THROUGHOUT SHIFT (SEE NOTES), WOULD AWAKE TO STAFF TALKING WITH HER BUT WAS QUICK TO FALL BACK ASLEEP. PATIENT IS STILL SLEEPING BUT REPORTS SHE IS DOING BETTER NOW AND APPEARS TO BE MORE AWAKE, CAN STAY AWAKE FOR A CONVERSATION AND MAKES A LOT MORE SENSE. SITTING UP IN BED COLORING AT THIS TIME. VSS, ON 3L O2 VIA NC, SATS >92% THORUGHOUT SHIFT. UP TO BR SBA AND TO BSC WHEN SHE WAS "FEELING OFF". BLOOD SUGAR COVERAGE WITH INSULIN PER EMAR. CALL LIGHT IN REACH. WILL REPORT TO ONCOMING RN.
[2021-08-05 04:43] LABS: Hematocrit 34.4 % (33.0-51.0); Hemoglobin 11.3 g/dL (11.5-16.0); Mean Corpuscular HGB 29.8 pg (26.0-34.0); Mean Corpuscular HGB Conc 32.8 g/dL (31.5-36.5); Mean Corpuscular Volume 91 fL (80-100); Mean Platelet Volume 9.3 fL (9.1-12.4); NRBC ABSOLUTE 0.02 K/mm3 (0.00-0.02); NRBC Auto 0.3 /100 WBC (0.0-0.2); Platelet Count 144 K/mm3 (150-400); RDW Coefficient Variation 12.7 % (11.7-14.2); RDW Standard Deviation 42.4 fL (35.1-46.3); Red Blood Cell Count 3.79 M/mm3 (3.80-5.20); White Blood Cell Count 6.84 K/mm3 (4.00-11.30)
--- NOTE | 2021-08-05 04:59 | NUR ---
SHIFT SUMMARY A/OX3, SBA TO BSC. PT SLEPT MOST OF THE SHIFT. CURRENTLY ON 3L NC WITH SATS GREATER THAN 92. DENIES PAIN. VSS, NO ACUTE CHANGES AT THIS TIME. BED IN LOWEST POSITION WITH CALL LIGHT IN REACH WILL CONTINUE TO MONITOR AND REPORT TO ONCOMING RN.
[2021-08-05 05:00] LABS: Albumin, Blood 1.9 g/dL (3.4-5.0); Anion Gap 7 mmol/L (6-16); Blood Urea Nitrogen 9 mg/dL (8-24); Bun/Creatinine Ratio 10.4 (12.0-20.0); CO2, Blood 29 mmol/L (21-32); Calcium, Blood 9.4 mg/dL (8.5-10.1); Chloride, Blood 102 mmol/L (98-108); Creatinine, Blood 0.86 mg/dL (0.40-1.00); Glomerular Filtration Rate 81 (60-); Glucose, Blood 253 mg/dL (70-99); Magnesium, Blood 1.8 mg/dL (1.6-2.4); Phosphorus, Blood 3.6 mg/dL (2.5-4.9); Potassium, Blood 3.8 mmol/L (3.5-5.5); Sodium, Blood 138 mmol/L (136-145)
[2021-08-05 05:07] LABS: BAND PERCENT MAN 4 % (0-8); BASOPHILS PERCENT MAN 0 % (0-2); EOSINOPHILS ABSOLUTE MAN 0.34 K/mm3 (0.00-0.68); EOSINOPHILS PERCENT MAN 5 % (0-6); LYMPHOCYTES ABSOLUTE MAN 2.73 K/mm3 (0.84-5.20); LYMPHOCYTES PERCENT MAN 40 % (21-46); METAMYELOCYTE ABSOLUTE MAN 0.41 K/mm3 (0.00-0.00); METAMYELOCYTE PERCENT MAN 6 % (0-0); MONOCYTES ABSOLUTE MAN 0.34 K/mm3 (0.16-1.47); MONOCYTES PERCENT MAN 5 % (4-13); MYELOCYTE PERCENT MAN 3 % (0-0); SEG NEUTROPHILS PERCENT MAN 37 % (41-73); TOTAL CELLS COUNTED 100
--- NOTE | 2021-08-05 13:13 | NUR ---
Pt. is sitting up in bed and welcomes my visit. Pt. is unsettled about her length of stay. Listen empathetically, develop support, and offer pastoral support. Pt. does ahve outside spiritual support through the [facility]. Pt. displays evidence of building trust and agreement. Prayed with Pt. Pt. verbalized gratitude for the spiritual care visit.
--- NOTE | 2021-08-05 15:43 | NUR ---
SHIFT SUMMARY PATIENT ALERT & AWAKE TODAY, INDEPENDENT IN ROOM. UP TO CHAIR & AMBULATED HALLWAYS THROUGHOUT SHIFT. WEANED OFF OXYGEN TODAY, SATS MAINTAINING >90%. ENCOURAGING DEEP BREATHING, COUGHING, & USE OF INCENTIVE SPIROMETER. EATING, DRINKING, & VOIDING WELL. BM TODAY. BLOOD SUGARS REMAIN IN HIGH 200'S, INSULING PER SLINDING SCALE ON EMAR. NO ACUTE CHANGES OR CONCERNS AT THIS TIME. WILL REPORT TO ONCOMING RN.
--- NOTE | 2021-08-05 17:08 | NUR ---
1543 ASSUMED CARE OF PATIENT. PT AMBULATING IN KAM, DENIES SOB
--- NOTE | 2021-08-05 18:28 | NUR ---
AMBULATING IN ROOM ON ROOM AIR. OCC COUGH PRODUCTIVE OF DARK YELLOW WITH OCC STREAK OF BLOODY SPUTUM. TOMGUE RED BUT PATIENT REPORTS IS MUCH LESS PAINFUL
[2021-08-06 05:22] LABS: Hematocrit 36.4 % (33.0-51.0); Hemoglobin 11.6 g/dL (11.5-16.0); Mean Corpuscular HGB 29.1 pg (26.0-34.0); Mean Corpuscular HGB Conc 31.9 g/dL (31.5-36.5); Mean Corpuscular Volume 92 fL (80-100); Mean Platelet Volume 9.4 fL (9.1-12.4); NRBC ABSOLUTE 0.02 K/mm3 (0.00-0.02); NRBC Auto 0.3 /100 WBC (0.0-0.2); Platelet Count 146 K/mm3 (150-400); RDW Coefficient Variation 12.7 % (11.7-14.2); RDW Standard Deviation 42.3 fL (35.1-46.3); Red Blood Cell Count 3.98 M/mm3 (3.80-5.20)
[2021-08-06 05:42] LABS: Albumin, Blood 1.9 g/dL (3.4-5.0); Anion Gap 7 mmol/L (6-16); Blood Urea Nitrogen 7 mg/dL (8-24); Bun/Creatinine Ratio 8.7 (12.0-20.0); CO2, Blood 28 mmol/L (21-32); Calcium, Blood 9.3 mg/dL (8.5-10.1); Chloride, Blood 102 mmol/L (98-108); Glomerular Filtration Rate 88 (60-); Glucose, Blood 266 mg/dL (70-99); Magnesium, Blood 1.7 mg/dL (1.6-2.4); Phosphorus, Blood 3.5 mg/dL (2.5-4.9); Potassium, Blood 3.9 mmol/L (3.5-5.5); Sodium, Blood 137 mmol/L (136-145)
[2021-08-06 05:46] LABS: BAND PERCENT MAN 5 % (0-8); BASOPHILS PERCENT MAN 0 % (0-2); EOSINOPHILS ABSOLUTE MAN 0.54 K/mm3 (0.00-0.68); EOSINOPHILS PERCENT MAN 9 % (0-6); LYMPHOCYTES ABSOLUTE MAN 1.92 K/mm3 (0.84-5.20); LYMPHOCYTES PERCENT MAN 32 % (21-46); METAMYELOCYTE ABSOLUTE MAN 0.24 K/mm3 (0.00-0.00); METAMYELOCYTE PERCENT MAN 4 % (0-0); MONOCYTES ABSOLUTE MAN 0.54 K/mm3 (0.16-1.47); MONOCYTES PERCENT MAN 9 % (4-13); MYELOCYTE ABSOLUTE MAN 0.06 K/mm3 (0.00-0.00); MYELOCYTE PERCENT MAN 1 % (0-0); SEG NEUTROPHILS PERCENT MAN 40 % (41-73); TOTAL CELLS COUNTED 100
--- NOTE | 2021-08-06 08:26 | NUR ---
summary no resp distress tonight.
--- NOTE | 2021-08-06 11:05 | NUR ---
DR HAWKINS IN TO SEE PT.
--- NOTE | 2021-08-06 16:59 | NUR ---
SUMMARY NO ACUTE CHANGES T/O SHIFT. PT 02 SATS STABLE ON RA WA. USING 02 DURING SLEEP DUE TO FACT UNABLE TO TOLERATE HOSPITAL CPAP MASK. PT INDEPDENT IN ROOM. TOLERATING PO. BECAME TEARFUL THIS SHIFT WHEN DR ADVISED PT WAS NOT READY FOR DC YET. PT WANTS TO GO HOME. CALL LIGHT IN REACH.
[2021-08-07 04:29] LABS: Hemoglobin 11.8 g/dL (11.5-16.0); Mean Corpuscular HGB Conc 32.8 g/dL (31.5-36.5); Mean Corpuscular Volume 92 fL (80-100); Mean Platelet Volume 9.1 fL (9.1-12.4); Platelet Count 165 K/mm3 (150-400); RDW Coefficient Variation 12.7 % (11.7-14.2); RDW Standard Deviation 42.5 fL (35.1-46.3); Red Blood Cell Count 3.93 M/mm3 (3.80-5.20); White Blood Cell Count 5.98 K/mm3 (4.00-11.30)
[2021-08-07 04:46] LABS: Magnesium, Blood 1.7 mg/dL (1.6-2.4)
[2021-08-07 04:47] LABS: Albumin, Blood 2.1 g/dL (3.4-5.0); Anion Gap 6 mmol/L (6-16); Blood Urea Nitrogen 6 mg/dL (8-24); Bun/Creatinine Ratio 7.5 (12.0-20.0); CO2, Blood 30 mmol/L (21-32); Calcium, Blood 9.2 mg/dL (8.5-10.1); Chloride, Blood 103 mmol/L (98-108); Glomerular Filtration Rate 88 (60-); Glucose, Blood 190 mg/dL (70-99); Phosphorus, Blood 3.4 mg/dL (2.5-4.9); Potassium, Blood 3.9 mmol/L (3.5-5.5); Sodium, Blood 139 mmol/L (136-145)
[2021-08-07 05:24] LABS: BAND PERCENT MAN 15 % (0-8); BASOPHILS PERCENT MAN 0 % (0-2); EOSINOPHILS ABSOLUTE MAN 0.11 K/mm3 (0.00-0.68); EOSINOPHILS PERCENT MAN 2 % (0-6); LYMPHOCYTES ABSOLUTE MAN 2.09 K/mm3 (0.84-5.20); LYMPHOCYTES PERCENT MAN 35 % (21-46); MONOCYTES ABSOLUTE MAN 0.53 K/mm3 (0.16-1.47); MONOCYTES PERCENT MAN 9 % (4-13); NEUTROPHILS ABSOLUTE MAN 3.22 K/mm3 (1.96-9.15); SEG NEUTROPHILS PERCENT MAN 39 % (41-73); TOTAL CELLS COUNTED 100
--- NOTE | 2021-08-07 07:34 | NUR ---
SUMMARY UNEVENTFUL NIGHT, HOPING FOR DISCHARE TODAY.
[2021-08-07 09:52] LABS: C DIFFICILE DNA NEGATIVE (Negative)
--- NOTE | 2021-08-07 16:51 | NUR ---
DR. HAWKINS IN TO SEE PT EARLIER THIS AFTERNOON, PLAN TO POSSIBLY DC PT HOME THIS EVENING PENDING LABS AND CXR.
[2021-08-07] MEDS ORDERED: CEFP200 PO (18:28)
[2021-08-07] MEDS ORDERED: AZIT500 PO (18:28)
[2021-08-07] MEDS ORDERED: BASAGLAR K100 UNIT/8 SC (18:33)
[2021-08-07] MEDS ORDERED: [UNRECOGNIZED DRUG - CODE] PO (18:35)
--- NOTE | 2021-08-07 18:50 | NUR ---
DC'D HOME, DC INSTRUCTIONS GIVEN, VERBALIZED UNDERSTANDING.
== END 2021-08-07 18:51 | disposition home or self-care (01) | DRG 193 ==
LOC: ER 22:17 → ICUW 08-02 00:18 → SURS 08-03 00:22
PROVIDERS: Emergency Medicine; Family Medicine; Nurse Practitioner Acute Care; ADMIT Internal Medicine
DX: J18.9 Pneumonia, unspecified organism (principal); J96.01 Acute respiratory failure with hypoxia; G92.8 Other toxic encephalopathy; E66.2 Morbid (severe) obesity with alveolar hypoventilation; Z68.42 Body mass index [BMI] 45.0-49.9, adult; J45.909 Unspecified asthma, uncomplicated; E11.9 Type 2 diabetes mellitus without complications; Z20.822 Contact with and (suspected) exposure to COVID-19; E03.9 Hypothyroidism, unspecified; F12.90 Cannabis use, unspecified, uncomplicated; G47.33 Obstructive sleep apnea (adult) (pediatric); F25.0 Schizoaffective disorder, bipolar type; F17.290 Nicotine dependence, other tobacco product, uncomplicated; Z90.710 Acquired absence of both cervix and uterus; Z99.89 Dependence on other enabling machines and devices; Z98.890 Other specified postprocedural states; Z88.0 Allergy status to penicillin; Z90.49 Acquired absence of other specified parts of digestive tract; Z87.19 Personal history of other diseases of the digestive system; Z88.1 Allergy status to other antibiotic agents; Z88.2 Allergy status to sulfonamides; Z88.8 Allergy status to other drugs, medicaments and biological substances; Z79.899 Other long term (current) drug therapy; Z79.84 Long term (current) use of oral hypoglycemic drugs
CPT/HCPCS: 0241U; 36415; 36600; 71045; 80048; 80053; 80069; 80164; 80202; 81001; 82803; 82947; 83605; 83735; 83880; 84145; 84484; 85025; 86140; 87070; 87493; 93005; 93010; 94640; 94660; 94664; 94760; 94762; 96374; 96375; 99285-25; A9270; G0480; J0696; J1815; J2310; J2543; J3370; J3475; J7040; J7060; J7120

== ENCOUNTER → 2021-12-23 | Outpatient (CLI) | payer MEDICARE, OTHER ==
[~2021-12-23] MED LIST changes: +AZIT500 PO; +BASAGLAR K100 UNIT/8 SC; +TOPI25 PO; -TOPI25C PO; +TRAM50 PO; +[UNRECOGNIZED DRUG - CODE] PO
[2021-12-23 14:48] LABS: BASOPHILS ABSOLUTE AUTO 0.02 K/mm3 (0.00-0.23); BASOPHILS PERCENT AUTO 0 % (0-2); EOSINOPHILS ABSOLUTE AUTO 0.34 K/mm3 (0.00-0.68); EOSINOPHILS PERCENT AUTO 6 % (0-6); Hematocrit 37.5 % (33.0-51.0); Hemoglobin 12.9 g/dL (11.5-16.0); IMMATURE GRAN ABSOLUTE AUTO 0.03 K/mm3 (0.00-0.10); IMMATURE GRAN PERCENT AUTO 1 % (0-1); LYMPHOCYTES ABSOLUTE AUTO 2.06 K/mm3 (0.84-5.20); LYMPHOCYTES PERCENT AUTO 38 % (21-46); MONOCYTES ABSOLUTE AUTO 0.26 K/mm3 (0.16-1.47); MONOCYTES PERCENT AUTO 5 % (4-13); Mean Corpuscular HGB 30.3 pg (26.0-34.0); Mean Corpuscular HGB Conc 34.4 g/dL (31.5-36.5); Mean Corpuscular Volume 88 fL (80-100); NEUTROPHILS ABSOLUTE AUTO 2.78 K/mm3 (1.96-9.15); NEUTROPHILS PERCENT AUTO 51 % (41-73); RDW Coefficient Variation 13.2 % (11.7-14.2); RDW Standard Deviation 41.9 fL (35.1-46.3); Red Blood Cell Count 4.26 M/mm3 (3.80-5.20); White Blood Cell Count 5.49 K/mm3 (4.00-11.30)
[2021-12-23 14:58] LABS: Bun/Creatinine Ratio 11.6 (12.0-20.0); Creatinine, Blood 1.12 mg/dL (0.40-1.00); Potassium, Blood 4.7 mmol/L (3.5-5.5)
[2021-12-23 15:00] LABS: Mean Platelet Volume 10.3 fL (9.1-12.4)
[2021-12-23 15:06] LABS: Platelet Count 101 K/mm3 (150-400)
== END | disposition home or self-care (01) ==
LOC: LAB 14:44 → LAB SHORT 14:44
PROVIDERS: Physician Assistant Surgical
DX: R55 Syncope and collapse (principal)
CPT/HCPCS: 80048; 85025

== ENCOUNTER 2021-12-31 14:13 | Emergency (ER) | payer MEDICARE, OTHER ==
[~2021-12-31] VITALS: Ht 172.7 cm; Wt 132.4 kg
== END 2021-12-31 15:56 | disposition home or self-care (01) ==
LOC: ER 14:13
DX: R05.9 Cough, unspecified (principal); E11.9 Type 2 diabetes mellitus without complications; J45.909 Unspecified asthma, uncomplicated; F17.290 Nicotine dependence, other tobacco product, uncomplicated
CPT/HCPCS: 71046

== ENCOUNTER 2022-03-26 20:40 | Emergency (ER) | payer MEDICARE, OTHER ==
[~2022-03-26] VITALS: Ht 172.7 cm; Wt 136.1 kg
[2022-03-26] MEDS ORDERED: CEPH500 PO (21:46)
== END 2022-03-26 21:49 | disposition home or self-care (01) ==
LOC: ER 20:40
DX: L02.211 Cutaneous abscess of abdominal wall (principal); E11.9 Type 2 diabetes mellitus without complications; F17.210 Nicotine dependence, cigarettes, uncomplicated; Z88.2 Allergy status to sulfonamides; Z88.0 Allergy status to penicillin; Z88.8 Allergy status to other drugs, medicaments and biological substances; Z79.84 Long term (current) use of oral hypoglycemic drugs; Z79.899 Other long term (current) drug therapy; Z79.4 Long term (current) use of insulin
CPT/HCPCS: A9270

== ENCOUNTER 2022-04-18 19:36 | Emergency (ER) | payer MEDICARE, OTHER ==
[~2022-04-18] VITALS: Ht 170.2 cm; Wt 111.1 kg
== END 2022-04-18 22:14 | disposition home or self-care (01) ==
LOC: ER 19:36
DX: Z00.8 Encounter for other general examination (principal); E11.9 Type 2 diabetes mellitus without complications; F17.210 Nicotine dependence, cigarettes, uncomplicated; Z79.4 Long term (current) use of insulin; Z79.899 Other long term (current) drug therapy; Z88.2 Allergy status to sulfonamides; Z88.1 Allergy status to other antibiotic agents; Z88.8 Allergy status to other drugs, medicaments and biological substances
CPT/HCPCS: 36415; 93005; 93010; 99284-25

== ENCOUNTER 2022-10-06 08:09 | Day surgery (SDC) | payer OTHER ==
[~2022-10-06] VITALS: Ht 172.7 cm; Wt 121.2 kg
[~2022-10-06 08:09] MED LIST changes: +ALBU2.5V5 INH; +BACLOFEN5 M1 PO; +COLCHICINE0.6 MG PO; +Crestor40 MG PO; +INSULIN LI100 UNIT/6; +KLOR-CON 1010 ME1 PO
[2022-10-06 09:10] VITALS: BP 118/75
[2022-10-06 09:12] VITALS: BP 113/72
--- NOTE | 2022-10-06 09:26 | NUR ---
Ambulatory in Day Surgery. History, Chart, Medications and Allergies reviewed before start of procedure. Patient confirms NPO status and agrees with scheduled surgery. Pre-Op teaching done. Pt verbalizes understanding. Patient States Post-Procedure ride home has been arranged.
--- NOTE | 2022-10-06 09:44 | NUR ---
10/06/22 0944 Radha Rider History, Chart, Medications and Allergies reviewed before start of procedure.DR HOROWITZ PROVIDING ANESTHESIA
[2022-10-06 10:57] VITALS: BP 98/60
--- NOTE | 2022-10-06 11:00 | NUR ---
REPORT RECEIVED FROM JACQUELINE HANCOCK RN. VSS. PT ABLE TO REPOSITION SELF IN BED. PT REQUESTING PO FOOD AND FLUIDS AND TOLERATING THEM WELL. PT DENIES PAIN, NAUSEA OR OTHER DISCOMFORTS.
[2022-10-06 11:09] VITALS: BP 116/79
[2022-10-06 11:15] VITALS: BP 124/89
--- NOTE | 2022-10-06 11:23 | NUR ---
Patient up to Ambulate independently. Gait steady. VSS. Discharge instructions reviewed with patient. Patient verbalizes understanding. Copy given to patient to take home. Patient States Post-Procedure ride home has been arranged. Discharged via wheelchair to private car for ride home. PT BELONGINGS RETURNED TO PT.
== END 2022-10-06 11:24 | disposition home or self-care (01) ==
LOC: ORSCMMR 08:09 → ORD 09:30 → ORSCMMR 11:24
DX: Z12.11 Encounter for screening for malignant neoplasm of colon (principal); D12.0 Benign neoplasm of cecum; D12.2 Benign neoplasm of ascending colon; D12.3 Benign neoplasm of transverse colon; K57.30 Diverticulosis of large intestine without perforation or abscess without bleeding; K64.8 Other hemorrhoids; J44.9 Chronic obstructive pulmonary disease, unspecified; E11.9 Type 2 diabetes mellitus without complications; G47.33 Obstructive sleep apnea (adult) (pediatric); K21.9 Gastro-esophageal reflux disease without esophagitis; E66.01 Morbid (severe) obesity due to excess calories; Z68.41 Body mass index [BMI] 40.0-44.9, adult; F31.9 Bipolar disorder, unspecified; G40.909 Epilepsy, unspecified, not intractable, without status epilepticus; Z79.84 Long term (current) use of oral hypoglycemic drugs; Z79.899 Other long term (current) drug therapy
CPT/HCPCS: 82947; 88305; J2704; J7120

== ENCOUNTER 2022-10-06 18:21 | Emergency (ER) | payer OTHER ==
[~2022-10-06] VITALS: Ht 172.7 cm; Wt 123.8 kg
[2022-10-06 18:53] LABS: BASOPHILS ABSOLUTE AUTO 0.02 K/mm3 (0.00-0.23); BASOPHILS PERCENT AUTO 0 % (0-2); EOSINOPHILS PERCENT AUTO 3 % (0-6); Hemoglobin 14.3 g/dL (11.5-16.0); IMMATURE GRAN ABSOLUTE AUTO 0.02 K/mm3 (0.00-0.10); IMMATURE GRAN PERCENT AUTO 0 % (0-1); LYMPHOCYTES ABSOLUTE AUTO 2.51 K/mm3 (0.84-5.20); LYMPHOCYTES PERCENT AUTO 39 % (21-46); MONOCYTES ABSOLUTE AUTO 0.27 K/mm3 (0.16-1.47); MONOCYTES PERCENT AUTO 4 % (4-13); Mean Corpuscular HGB 29.7 pg (26.0-34.0); Mean Corpuscular HGB Conc 34.9 g/dL (31.5-36.5); Mean Corpuscular Volume 85 fL (80-100); Mean Platelet Volume 10.7 fL (9.1-12.4); NEUTROPHILS ABSOLUTE AUTO 3.35 K/mm3 (1.96-9.15); NEUTROPHILS PERCENT AUTO 53 % (41-73); Platelet Count 113 K/mm3 (150-400); RDW Coefficient Variation 12.9 % (11.7-14.2); RDW Standard Deviation 40.1 fL (35.1-46.3); Red Blood Cell Count 4.81 M/mm3 (3.80-5.20); White Blood Cell Count 6.37 K/mm3 (4.00-11.30)
[2022-10-06 19:14] LABS: Albumin, Blood 3.6 g/dL (3.4-5.0); Bilirubin, Total 0.5 mg/dL (0.1-1.0); Bun/Creatinine Ratio 14.3 (12.0-20.0); Calcium, Blood 9.3 mg/dL (8.5-10.1); Creatinine, Blood 0.63 mg/dL (0.40-1.00); Globulin, Blood 3.5 g/dL (2.2-4.0); Potassium, Blood 3.6 mmol/L (3.5-5.5); Total Protein, Blood 7.1 g/dL (6.4-8.2)
[2022-10-06 21:00] VITALS: BP 126/86
== END 2022-10-06 21:07 | disposition home or self-care (01) ==
LOC: ER 18:21
PROVIDERS: Student in an Organized Health Care Education/Training Program
DX: G89.18 Other acute postprocedural pain (principal); R10.13 Epigastric pain; F17.290 Nicotine dependence, other tobacco product, uncomplicated; Z79.899 Other long term (current) drug therapy; Z88.0 Allergy status to penicillin; Z88.2 Allergy status to sulfonamides; Z88.1 Allergy status to other antibiotic agents; Z79.4 Long term (current) use of insulin
CPT/HCPCS: 71046; 80053; 83690; 84484; 85025; 93005; 93010; 99285-25

== ENCOUNTER 2023-08-21 01:13 | Emergency (ER) | payer OTHER ==
[~2023-08-21] VITALS: Ht 172.7 cm; Wt 115.2 kg
[2023-08-21] MEDS ORDERED: Ondansetron HCl 2 MG / ML 2ML Vial IV PRN (01:20)
[2023-08-21] MEDS ORDERED: HYDHCL25 PO (01:30)
[2023-08-21] MEDS ORDERED: NOVOLOG FL100 UNIT/3 SC (01:30)
[2023-08-21] MEDS ORDERED: JARDIANCE25 MG PO (01:31)
[2023-08-21] MEDS ORDERED: TRULICITY0.75 MG/01 SC (01:31)
[2023-08-21] MEDS ORDERED: METFORMIN HCL500 M3 PO (01:31)
[2023-08-21] MEDS ORDERED: SEMGLEE (Y100 UNIT/2 SC (01:32)
[2023-08-21 01:33] LABS: BASOPHILS ABSOLUTE AUTO 0.02 K/mm3 (0.00-0.23); BASOPHILS PERCENT AUTO 0 % (0-2); EOSINOPHILS ABSOLUTE AUTO 0.27 K/mm3 (0.00-0.68); EOSINOPHILS PERCENT AUTO 4 % (0-6); Hematocrit 38.7 % (33.0-51.0); IMMATURE GRAN ABSOLUTE AUTO 0.02 K/mm3 (0.00-0.10); IMMATURE GRAN PERCENT AUTO 0 % (0-1); LYMPHOCYTES ABSOLUTE AUTO 3.63 K/mm3 (0.84-5.20); LYMPHOCYTES PERCENT AUTO 52 % (21-46); MONOCYTES ABSOLUTE AUTO 0.33 K/mm3 (0.16-1.47); MONOCYTES PERCENT AUTO 5 % (4-13); Mean Corpuscular HGB 28.2 pg (26.0-34.0); Mean Corpuscular HGB Conc 33.6 g/dL (31.5-36.5); Mean Corpuscular Volume 84 fL (80-100); Mean Platelet Volume 10.5 fL (9.1-12.4); NEUTROPHILS ABSOLUTE AUTO 2.73 K/mm3 (1.96-9.15); NEUTROPHILS PERCENT AUTO 39 % (41-73); Platelet Count 124 K/mm3 (150-400); RDW Coefficient Variation 13.2 % (11.7-14.2); RDW Standard Deviation 40.4 fL (35.1-46.3); Red Blood Cell Count 4.61 M/mm3 (3.80-5.20)
[2023-08-21 01:49] LABS: Albumin, Blood 3.2 g/dL (3.4-5.0); Bilirubin, Total 0.3 mg/dL (0.1-1.0); Bun/Creatinine Ratio 16.8 (12.0-20.0); Calcium, Blood 8.8 mg/dL (8.5-10.1); Creatinine, Blood 0.71 mg/dL (0.40-1.00); Globulin, Blood 3.2 g/dL (2.2-4.0); Potassium, Blood 3.9 mmol/L (3.5-5.5); Total Protein, Blood 6.4 g/dL (6.4-8.2)
[2023-08-21] MEDS ORDERED: NS 1,000 ML IV SCH (02:40)
[2023-08-21 04:09] VITALS: BP 138/77
== END 2023-08-21 04:30 | disposition home or self-care (01) ==
LOC: ER 01:13
PROVIDERS: Emergency Medicine
DX: E86.0 Dehydration (principal); E11.9 Type 2 diabetes mellitus without complications; F17.290 Nicotine dependence, other tobacco product, uncomplicated; Z88.0 Allergy status to penicillin; Z88.2 Allergy status to sulfonamides; Z88.1 Allergy status to other antibiotic agents; Z88.8 Allergy status to other drugs, medicaments and biological substances; Z79.4 Long term (current) use of insulin; Z79.899 Other long term (current) drug therapy; Z79.84 Long term (current) use of oral hypoglycemic drugs
CPT/HCPCS: 80053; 84484; 85025; 93005; 93010; 96360; 99284-25; J7030

== ENCOUNTER → 2024-05-12 | Outpatient (CLI) | payer OTHER ==
[~2024-05-12] MED LIST changes: +ABILIFY MYCITE20 M2 PO; +ATORVASTATIN CA20 MG PO; +CELEXA40 M1 PO; +HYDHCL25 PO; +IMITREX100 MG PO; +JARDIANCE25 MG PO; +KLOR-CON 1010 ME9 PO; +METFORMIN HCL500 M3 PO; +PREGABALIN75 MG PO; +SEMGLEE (Y100 UNIT/2 SC; +TRULICITY0.75 MG/01 SC
== END ==
LOC: LAB 07:45 → LAB SHORT 07:45
DX: L72.0 Epidermal cyst (principal); M79.89 Other specified soft tissue disorders
CPT/HCPCS: 88304

== ENCOUNTER → 2024-11-25 | Outpatient (CLI) | payer OTHER ==
[2024-11-25 21:37] LABS: Creatinine, Urine Random 81.0 mg/dL (27.00-270.00); Microalb/Creat Ratio UR, Rand 13.58 mg/g (0.000-30.000); Microalbumin, Random Urine 11.0 mg/L (0.000-20.000)
== END | disposition home or self-care (01) ==
LOC: LAB 16:30 → LAB SHORT 16:30
PROVIDERS: Internal Medicine Endocrinology, Diabetes & Metabolism
DX: E11.42 Type 2 diabetes mellitus with diabetic polyneuropathy (principal); E11.65 Type 2 diabetes mellitus with hyperglycemia; E11.69 Type 2 diabetes mellitus with other specified complication
CPT/HCPCS: 82043; 82570

== ENCOUNTER 2024-12-13 12:49 | Emergency (ER) | payer OTHER ==
[~2024-12-13] VITALS: Ht 172.7 cm; Wt 117.9 kg
[2024-12-13 13:04] VITALS: BP 110/72
[2024-12-13 13:39] LABS: BASOPHILS ABSOLUTE AUTO 0.03 K/mm3 (0.00-0.23); BASOPHILS PERCENT AUTO 0 % (0-2); EOSINOPHILS ABSOLUTE AUTO 0.37 K/mm3 (0.00-0.68); EOSINOPHILS PERCENT AUTO 4 % (0-6); Hematocrit 41.8 % (33.0-51.0); Hemoglobin 13.6 g/dL (11.5-16.0); IMMATURE GRAN ABSOLUTE AUTO 0.01 K/mm3 (0.00-0.10); IMMATURE GRAN PERCENT AUTO 0 % (0-1); LYMPHOCYTES ABSOLUTE AUTO 3.27 K/mm3 (0.84-5.20); LYMPHOCYTES PERCENT AUTO 38 % (21-46); MONOCYTES ABSOLUTE AUTO 0.42 K/mm3 (0.16-1.47); MONOCYTES PERCENT AUTO 5 % (4-13); Mean Corpuscular HGB Conc 32.5 g/dL (31.5-36.5); Mean Corpuscular Volume 85 fL (80-100); NEUTROPHILS ABSOLUTE AUTO 4.41 K/mm3 (1.96-9.15); NEUTROPHILS PERCENT AUTO 52 % (41-73); NRBC ABSOLUTE 0.00 K/mm3 (0.00-0.02); NRBC Auto 0.0 /100 WBC (0.0-0.2); Platelet Count 109 K/mm3 (150-400); RDW Coefficient Variation 13.5 % (11.7-14.2); RDW Standard Deviation 42.2 fL (35.1-46.3)
[2024-12-13 13:44] LABS: Magnesium, Blood 1.8 mg/dL (1.6-2.4)
[2024-12-13 13:45] LABS: Alanine Aminotransfer (ALT/SGP 34.0 U/L (12-78); Albumin, Blood 3.7 g/dL (3.4-5.0); Albumin/Globulin Ratio 1.2 (0.8-1.8); Anion Gap 7.0 mmol/L (3-11); Aspartate Aminotrans (AST/SGOT 22.0 U/L (12-37); Bilirubin, Total 0.5 mg/dL (0.1-1.0); Blood Urea Nitrogen 12.0 mg/dL (8-24); CO2, Blood 29.0 mmol/L (21-32); Calcium, Blood 8.8 mg/dL (8.5-10.1); Chloride, Blood 107.0 mmol/L (98-108); Creatinine, Blood 0.86 mg/dL (0.40-1.00); Globulin, Blood 3.2 g/dL (2.2-4.0); Glucose, Blood 111.0 mg/dL (70-99); Phosphorus, Blood 2.6 mg/dL (2.5-4.9); Potassium, Blood 4.1 mmol/L (3.5-5.5); Sodium, Blood 139.0 mmol/L (136-145); Total Protein, Blood 6.9 g/dL (6.4-8.2)
== END 2024-12-13 14:55 | disposition left against medical advice (07) ==
LOC: ER 12:49
PROVIDERS: Physician Assistant
DX: M79.602 Pain in left arm (principal); M54.2 Cervicalgia; R03.1 Nonspecific low blood-pressure reading; Z53.21 Procedure and treatment not carried out due to patient leaving prior to being seen by health care provider
CPT/HCPCS: 80053; 83735; 84100; 84484; 85025; 93005; 93010